=== PATIENT | male | born 1970 | race Caucasian/White ===

== ENCOUNTER → 2018-04-26 | Outpatient (CLI) | payer OTHER ==
[~2018-04-26] VITALS: Ht 182.9 cm; Wt 95.3 kg
[~2018-04-26] MED LIST: DURAGESIC1 EAC4 TOP; DURAGESIC1 EAC5 TRANSDERM; NEURONTIN600 MG PO; OXCARBAZEPINE150 MG PO; ROXICODONE15 M1 PO; ROXICODONE15 MG PO; ZANAFLEX2 MG PO
--- NOTE | ~2018-04-26 | HPC ---
[facility] [address] [place] [address] PAIN MANAGEMENT CONSULTATION Name: FELA VICTOR Room #: REG [facility]#: [id number] Admission: 04/26/18 Attend Phys: Andres Christina MD Discharge: Date of : 66 Report #: [id number] THIS REPORT FOR: //name// CC: Tena RAE [facility] physician/PCP Andres Christina CHIEF COMPLAINT: Chronic low back pain with radiation to the feet and ankles. 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 HISTORY OF PRESENT ILLNESS: This is the first visit at [facility] for the patient who is here today to renew medication. He is under terms of written opioid agreement that was established by my partner, Dr. Danis Victor. I will continue to provide him medication. He obtains benefit from the fentanyl patch changed every 48 hours. In addition, he has been using oxycodone 15 mg up to 3 times a day for breakthrough pain. His overall usage varies between 0 on a good day and 3 at the maximum on a bad day. He takes his breakthrough pain medication as he should, using it only when necessary with a baseline fentanyl is no longer providing relief. He has suffered greatly from his injury. He used to be very active and is still making efforts to continue to engage in joyful and day-to-day activities. This is harder in the winter and cold weather seems to exacerbate his pain and is in some situational depression. PHYSICAL EXAMINATION: GENERAL: Today He is well groomed, pleasant, soft spoken, appears mildly depressed. VITAL SIGNS: His blood pressure is 109/73, heart rate 85, respirations 14, BMI is 28.5. EXTREMITIES: Spastic gait is noted particularly on the left with some weakness. He has ataxia and spasticity in the left lower extremity. Deep tendon reflexes are diminished throughout the lower extremities. No localized numbness. IMPRESSION: 1. 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 2. Arachnoiditis. 3. Management of high risk medications under terms of an opioid agreement. RECOMMENDATIONS: We will continue to provide his medication for him. Alternate measures for treatment would include an intrathecal pump, which he is not interested in, as well as the possibility of a spinal cord stimulator. For now, we will continue medication management. He is instructed to carefully safeguard his medication. Because of his chronic use of opioid therapy and his relatively young age, I [facility] [address] [place] [address] PAIN MANAGEMENT CONSULTATION Name: FELA VICTOR Room #: REG [facility] Jer[facility]#: [id number] Admission: 04/26/18 Attend Phys: Andres Christina MD Discharge: Date of : 66 Report #: [id number] have asked for him to obtain a testosterone level. He may benefit from testosterone supplementation. We discussed all the risks of the opioid medications. Certainly effects on the testosterone can play a big role in fatigue, energy, sexual drive, and function. Questions were asked and answered. I have encouraged him to follow up with his primary care physician once a year. Given his significant traumatic injury, he needs an annual workup and blood work. By: [id number] Andres Christina MD /nt
[2018-04-26 12:56] VITALS: BP 109/73
--- NOTE | 2018-04-26 13:19 | NUR ---
Pain Clinic Assessment: 1. History of Osteoarthritis: Not Applicable History of Rheumatoid Arthritis: Not Applicable 2. Height: 6 ft. 0 in. 182.9 cm. Weight: 210.0 lb. oz. 95.256 kg. Patient's BMI: 28.5 3. Vital Signs: BP: 109/73 Pulse: 85 Resp: 14 Temp: 02 Sat: 98 ECG Mon: 4. Pain Intensity: 6 5. Fall Risk: Dizziness: N Needs help standing or walking: Y Fallen in the last 3 months: N Fall risk comments: 6. Patient on Blood Thinner: None 7. History of Hypertension: N 8. Opioid Therapy greater than 6 weeks: Y Opiate Contract Signed: 9. Risk Assessment Tool Provided: o-low 10. Functional Assessment Tool: 11. Recreational Drug Use: Never Drug Type: Tobacco Use: Never Smoker Tobacco Type: Amount or Packs/day: How Many Years: Alcohol Use: No Frequency: Quant:
== END ==
LOC: PAIN 07:15
DX: G95.89 Other specified diseases of spinal cord (principal); G03.9 Meningitis, unspecified; Z79.891 Long term (current) use of opiate analgesic

== ENCOUNTER → 2018-07-30 | Outpatient (CLI) | payer OTHER ==
[~2018-07-30] VITALS: Ht 182.9 cm; Wt 98.4 kg
[~2018-07-30] MED LIST changes: +DURAGESIC1 EACH TOP
[2018-07-30 09:52] VITALS: BP 129/79
--- NOTE | 2018-07-30 10:06 | NUR ---
Pain Clinic Assessment: 1. History of Osteoarthritis: Not Applicable History of Rheumatoid Arthritis: Not Applicable 2. Height: 6 ft. 0 in. 182.9 cm. Weight: 217.0 lb. oz. 98.431 kg. Patient's BMI: 29.4 3. Vital Signs: BP: 129/79 Pulse: 80 Resp: 16 Temp: 02 Sat: 97 ECG Mon: 4. Pain Intensity: 3 5. Fall Risk: Dizziness: N Needs help standing or walking: Y Fallen in the last 3 months: Y Fall risk comments: 6. Patient on Blood Thinner: None 7. History of Hypertension: N 8. Opioid Therapy greater than 6 weeks: Y Opiate Contract Signed: 9. Risk Assessment Tool Provided: o-low 10. Functional Assessment Tool: 11. Recreational Drug Use: Never Drug Type: Tobacco Use: Never Smoker Tobacco Type: Amount or Packs/day: How Many Years: Alcohol Use: No Frequency: Quant:
--- NOTE | 2018-07-31 08:39 | HPC ---
[facility] [address] [place] [address] PAIN MANAGEMENT CONSULTATION Name: FELA VICTOR [id number] Admission: 07/30/18 ������������������ Attend Phys: Fang Mcfadden Discharge: ������������������ Date of : 66 Report #: [id number] THIS REPORT FOR: //name// CC: Fang Mcfadden [facility] physician/PCP DATE OF SERVICE: 07/30/2018 CHIEF COMPLAINT: Chronic low back pain with radiation to the feet and ankles, history of arachnoiditis. HISTORY OF PRESENT ILLNESS: This is a very pleasant 47-year-old gentleman who returns to the pain clinic today for a refill of his medication. He is fairly new to the [facility], has been followed at [facility] for quite some time by Dr. Danis Victor and then most recently Dr. Andres Christina. He tells me that his pain score today is a 3/10. He has been doing quite well. He recently returned from a golf trip with his son in [place]. He was able to play a couple of rounds of golf. He has been trying to be more active. He stretches every morning and does yoga. He will take a tizanidine when he is doing his exercises and occasionally will need to repeat that for cramps in his legs. He tells me that his pain medicine has been very helpful in providing him means to be more active. He said occasionally, he tries to go longer on his patches in his 48 hours and feels like he is able to do that in managing his pain quite well. He tells me that occasionally, he does have some constipation not necessarily from his opioids, but from his previous colon surgeries, but he manages that with medication and diet. He tells me his pain is mostly in his low back and buttocks and his legs and feet, burning, constant, shooting, stabbing pain, but activity, heat and medications are helpful. He would like a refill of his medications today. ALLERGIES: BEE STINGS AND PENICILLIN. CURRENT LIST OF MEDICATIONS: Oxycodone 15 mg tablets every 8 hours as needed, fentanyl 50 mcg patch every 48 hours, tizanidine 2 mg tablets p.r.n., oxcarbazepine 150 mg 3 times a day and gabapentin 600 mg 3 times a day. PQRS: 1. She does not take any medicines for osteoarthritis or rheumatoid arthritis. 2. Height is 6 feet, weight is 217. BMI is 29. 3. Vital signs: Blood pressure 129/79, pulse is 80, respirations 16, oxygen sat is 97%. 4. Pain score is 3/10. 5. The patient denies dizziness. Does not need help walking or standing. Has fallen in the last 3 months. 6. The patient is not on any blood thinners or any medicines for hypertension. 7. Opioid therapy is greater than 6 weeks. [place] [address] PAIN MANAGEMENT CONSULTATION Name: FELA VICTOR Room #: REG [facility]#: [id number] Admission: 07/30/18 ������������������ Attend Phys: Fang Mcfadden Discharge: ������������������ Date of : 66 Report #: [id number] on the chart. 8. Risk assessment tool is low. Functional assessment is . 9. Recreational drug use, he denies. He is not a smoker and does not drink alcohol. We did check the prescription monitoring system and the patient is filling appropriately from Dr. Andres Christina. He tells me he does safeguard his medications. PHYSICAL EXAMINATION: GENERAL: This is a well-nourished, hydrated 47-year-old gentleman who appears his stated age. He is very tanned and in a good mood today. HEENT: Normocephalic, atraumatic. Extraocular eye muscles are intact. Mucous membranes are moist. EXTREMITIES: Mild spastic gait is noted, weakness, particularly in his left leg. He has ataxia and spasticity in his left lower extremity. His deep tendon reflexes are diminished in his lower extremities. IMPRESSION: 1. Persistent myelopathic and radiculopathy with spasticity and antalgic gait. 2. Arachnoiditis. 3. Management of high risk medications under terms of written opioid agreement. We reviewed the fact that opiate medications are being used to provide analgesia adequate to support activities of daily living, not attempting to achieve a specific pain score on the 0-10 Visual Analog Scale. The current opiate medications are providing sufficient analgesia to allow the patient to participate in activities of daily living. The patient is not exhibiting any aberrant behavior suggestive of drug diversion. The patient is not having any adverse reactions to medications. The patient is not suffering from daytime somnolence or mental acuity changes. The patient is managing opiate-induced constipation with appropriate fkze-lis-dftyaeu agents and dietary considerations. The patient was counseled on concern for caution with operating a motor vehicle while using opiate medications. A physical exam was performed and the patient's functional status was evaluated. All patients with back pain were advised against the bed rest greater than 4 days and were advised to return to normal activities. Pain score assessment was noted and the treatment plan was reviewed with the patient. All current medications, both prescribed and OTC were reviewed and reconciled on the electronic medical record. Tobacco screening was accomplished and smoking cessation was advised when indicated. BMI was noted and diet/exercise modification was recommended for all patients following outside normal parameters. I reviewed with the patient today their responsibilities to safeguard [facility] [address] [place] [address] PAIN MANAGEMENT CONSULTATION Name: FELA VICTOR Room #: REG [facility].#: [id number] Admission: 07/30/18 ������������������ Attend Phys: Fang Mcfadden Discharge: ������������������ Date of : 66 Report #: [id number] prescription medications, reviewed their responsibility to utilize medications only as prescribed by the physician. They are to seek and receive pain medications only from 1 physician group ( [facility]). They are to use 1 pharmacy and keep the clinic informed if they change pharmacies. Their responsibilities include making followup visits in a timely fashion and to avoid abrupt discontinuation of medication usage. Their responsibilities further include bringing their medications (bottles from the pharmacy with residual pills) to the visit for possible confirmation of pill counts and the patient understands it is their responsibility to submit to random drug screens to ensure both that the medications prescribed are present, and that no other controlled substances are present. All prescriptions provided today were generated electronically. PLAN: 1. We discussed treatment options with the patient today. The patient tells me that he has been on this current dose of medications since 2016, which he was on a significantly higher amount of medicine at that time. He had weaned down and has been doing quite well. He tells me that he does realize he is on a very high dose of medications, but it does allow him to function. Dr. Christina was present for part of the discussion today when we discussed his current morphine milligram equivalents of 153 per day well above the CDC guidelines. We think that we will try to decrease his medications to a lower dose. The patient is agreeable with trying this. We explained to him that the CDC guidelines are 90 morphine milligram equivalents or below. He may never get to that point, but we will try to taper him slowly to see if we get good benefits in reducing his pain, but also reducing his pain medicine without any side effects or withdrawal symptoms. The patient is agreeable to trying this. We will give him prescriptions for Duragesic 25 mcg patch and Duragesic 12 mcg patch to take every 48 hours as well as his OxyIR 15 mg to take as needed, #45 for the month, this will decrease his morphine milligram equivalents to 120 per day. 2. I explained the guidelines to the patient of our clinic how people will be seen on a monthly basis if they are above the 90 milligram equivalents per the CDC guidelines. He is fine with that. He will make an appointment for 1 month. We will see how he is doing and continue his current tapered dose for several months before we would try to possibly decrease his OxyIR dose to a lesser strength. The patient verbalizes understanding. Appointment made. 3. The patient is seen with Dr. Andres Christina today who collaborated care as well. ��������������������������������������������� <ELECTRONICALLY SIGNED> ���������������������������������������� By: Fang Mcfadden ��������������������������������������������� 07/31/18 0839 [id number] [id number] Fang Mcfadden /nt
== END ==
LOC: PAIN 07:02
DX: G89.29 Other chronic pain (principal); M54.16 Radiculopathy, lumbar region; G03.9 Meningitis, unspecified; Z88.0 Allergy status to penicillin; Z91.030 Bee allergy status; Z79.891 Long term (current) use of opiate analgesic

== ENCOUNTER → 2018-08-27 | Outpatient (CLI) | payer OTHER ==
[~2018-08-27] VITALS: Ht 185.4 cm; Wt 97.7 kg
[~2018-08-27] MED LIST changes: +TRILEPTAL150 MG PO
[2018-08-27 10:20] VITALS: BP 120/79
--- NOTE | 2018-08-27 10:38 | NUR ---
Pain Clinic Assessment: 1. History of Osteoarthritis: Not Applicable History of Rheumatoid Arthritis: Not Applicable 2. Height: 6 ft. 1 in. 185.4 cm. Weight: 215.4 lb. oz. 97.705 kg. Patient's BMI: 28.4 3. Vital Signs: BP: 120/79 Pulse: 65 Resp: 16 Temp: 02 Sat: 98 ECG Mon: 4. Pain Intensity: 5 5. Fall Risk: Dizziness: N Needs help standing or walking: N Fallen in the last 3 months: N Fall risk comments: 6. Patient on Blood Thinner: None 7. History of Hypertension: N 8. Opioid Therapy greater than 6 weeks: Y Opiate Contract Signed: 04/26/18 9. Risk Assessment Tool Provided: sheldon 10. Functional Assessment Tool: 11. Recreational Drug Use: Never Drug Type: Tobacco Use: Never Smoker Tobacco Type: Amount or Packs/day: How Many Years: Alcohol Use: No Frequency: Quant:
--- NOTE | 2018-08-28 09:06 | HPC ---
[facility] [address] [place] [address] PAIN MANAGEMENT CONSULTATION Name: FELA VICTOR Room #: REG [facility]#: [id number] Admission: 08/27/18 ������������������ Attend Phys: Fang Mcfadden Discharge: ������������������ Date of : 66 Report #: [id number] THIS REPORT FOR: //name// CC: Fang Mcfadden [facility] physician/PCP DATE OF SERVICE: 08/27/2018 CHIEF COMPLAINT: Chronic low back pain with radiation to his feet and ankles with a history of arachnoiditis. HISTORY OF PRESENT ILLNESS: This is a very pleasant 47-year-old gentleman who returns to the pain clinic today for refill of his medications. He tells me today that his pain score is 5/10, mostly complains of lower back pain and feet pain. He has a constant, burning, shooting, cramping pain, worse with activity. He does use heat and distraction to help relieve some of his pain. The patient tells us that he feels like he is doing okay since we decreased his medications last time, but he is afraid that he will experience more withdrawal or increased pain. He has tapered his medications in the past and he had lots of anxiety related to that though this past month, he tells me that he has been dealing with his pain using distraction techniques and has not had some of the issues that he had had in the past. He tells me that he feels like he does have some increased energy since decreasing his medications. The patient would like a refill of his medications today. He does also tell me that he has decreased his oxcarbazepine from 150 three times a day to 2 times a day and has not noticed any significant changes in decrease in that medicine as well. ALLERGIES: PENICILLIN and BEE STINGS. CURRENT MEDICATION LIST: Fentanyl 37 mcg every 48 hours, oxycodone 15 mg tablets 1-2 times a day, tizanidine 2 mg at bedtime, oxcarbazepine 150 mg b.i.d. and gabapentin 600 t.i.d. PQRS: 1. He does not take medicines for osteoarthritis or rheumatoid arthritis. 2. Height is 6 feet 1 inch, weight is 215 and BMI is 28. 3. VITAL SIGNS: Blood pressure 120/79, pulse is 65, respirations 16 and oxygen sat is 98. 4. Pain score is 5/10. 5. The patient denies dizziness. Does not need help walking or standing, has not fallen in the last 3 months. 6. The patient is not on any blood thinners or antihypertension medicines. 7. Opiate therapy is greater than 6 weeks; therefore, an opiate signed contract is on the chart. His risk assessment tool is low and functional assessment is . [address] [address] PAIN MANAGEMENT CONSULTATION Name: VALENTEFELA Cody Room #: REG [facility]#: [id number] Admission: 08/27/18 ������������������ Attend Phys: Fang Mcfadden Discharge: ������������������ Date of : 66 Report #: [id number] 8. Recreational drug use, he denies. He is not a smoker and does not drink alcohol. We did check the prescription monitoring system. The patient is due for his medications today. We will check a drug screen on him on the next appointment. He is a transfer from [facility] and so I am unsure when his last drug screen was performed. PHYSICAL EXAMINATION: GENERAL: This is a well-nourished, well-hydrated 47-year-old gentleman who appears his stated age, placing his current pain score today of 5/10. He is alert and tearful at times throughout our appointment today. HEENT: Normocephalic and atraumatic. Extraocular eye muscles are intact. Mucous membranes are moist. EXTREMITIES: Mild spastic gait is noted, weakness, particularly of his left leg. He has some ataxia and spasticity in his left lower extremity. His deep tendon reflexes are diminished in his lower extremities. His upper extremity strength judged to be 5/5 in all major muscle groups. IMPRESSION: 1. 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 2. Arachnoiditis. 3. Management of high risk medications under terms of written opioid agreement. We reviewed the fact that opiate medications are being used to provide analgesia adequate to support activities of daily living, not attempting to achieve a specific pain score on the 0-10 Visual Analog Scale. The current opiate medications are providing sufficient analgesia to allow the patient to participate in activities of daily living. The patient is not exhibiting any aberrant behavior suggestive of drug diversion. The patient is not having any adverse reactions to medications. The patient is not suffering from daytime somnolence or mental acuity changes. The patient is managing opiate-induced constipation with appropriate xavq-wbk-gkauiad agents and dietary considerations. The patient was counseled on concern for caution with operating a motor vehicle while using opiate medications. A physical exam was performed and the patient's functional status was evaluated. All patients with back pain were advised against the bed rest greater than 4 days and were advised to return to normal activities. Pain score assessment was noted and the treatment plan was reviewed with the patient. All current medications, both prescribed and OTC were reviewed and reconciled on the electronic medical record. Tobacco screening was accomplished and smoking cessation was advised when indicated. BMI was noted and diet/exercise modification was recommended for all patients following outside normal parameters. [address] [address] PAIN MANAGEMENT CONSULTATION Name: FELA VICTOR Room #: REG [facility]#: [id number] Admission: 08/27/18 ������������������ Attend Phys: Fang Mcfadden Discharge: ������������������ Date of : 66 Report #: [id number] I reviewed with the patient today their responsibilities to safeguard prescription medications, reviewed their responsibility to utilize medications only as prescribed by the physician. They are to seek and receive pain medications only from 1 physician group ( [facility]). They are to use 1 pharmacy and keep the clinic informed if they change pharmacies. Their responsibilities include making followup visits in a timely fashion and to avoid abrupt discontinuation of medication usage. Their responsibilities further include bringing their medications (bottles from the pharmacy with residual pills) to the visit for possible confirmation of pill counts and the patient understands it is their responsibility to submit to random drug screens to ensure both that the medications prescribed are present, and that no other controlled substances are present. All prescriptions provided today were generated electronically. PLAN: 1. We discussed treatment options with the patient today. Dr. Christina was present for part of this discussion. We decreased his narcotic use slightly at his last visit. He tells me that he is having some increased pain and has been worried and afraid that he will go through significant withdrawal and lack of energy and sitting at home like he had when he had decreased his meds in the past. He is slightly tearful about what this might happen over the next few months that he tells me he has been adjusting and using behavior modification and distraction techniques and feels like he is able to continue at this current dose for several months and see how he does. He is not willing to try to go up. He wants to stay where he is and see if his body will adjust. We agree with this plan that we want to see if he will continue to reset his receptors in his body and become opioid tolerant to his medications. Our plan is not to decrease him again for several more months. According to the CDC guidelines, he is currently at 120 morphine milliequivalents a day and we will keep him at this current dose for about 3 more months. He is agreeable with staying where he is and seeing how he continues to do. 2. Scripts given today for his fentanyl 25 mcg every 48 hours, #15 and fentanyl 12 mcg every 48 hours, #15 and OxyIR 15 mg 1-2 tablets a day, quantity 45. 3. Scripts given for gabapentin 600 mg t.i.d., #90 with one additional refill; tizanidine 2 mg q. 8 hours, #90 with one additional refill and Trileptal 150 b.i.d., #60 with one additional refill. The patient did question the Trileptal and trying to decrease that medication. He has decreased it from 3 times a day to twice a day, has not noticed any difference in his neuropathic pain. I explained to him that if he wants to try and decrease another tablet, he can, but we do not want to make too many changes while we are decreasing his narcotics. He verbalizes understanding. 4. We encouraged him to be as active as these possible and we will see him in 1 month time period to see how his medication regimen is going with a decrease. [address] [address] PAIN MANAGEMENT CONSULTATION Name: FELA VICTOR Room #: REG [facility]#: [id number] Admission: 08/27/18 ������������������ Attend Phys: Fang Mcfadden Discharge: ������������������ Date of : 66 Report #: [id number] 5. The patient seen in collaboration with Dr. Andres Christina who saw the patient as well today. ��������������������������������������������� <ELECTRONICALLY SIGNED> ���������������������������������������� By: Fang Mcfadden ��������������������������������������������� 08/28/18 0906 [id number] [id number] Fang Mcfadden /nt
== END ==
LOC: PAIN 06:44
DX: G89.29 Other chronic pain (principal); M54.16 Radiculopathy, lumbar region; G03.1 Chronic meningitis; Z88.0 Allergy status to penicillin; Z91.030 Bee allergy status; Z79.899 Other long term (current) drug therapy; Z79.891 Long term (current) use of opiate analgesic

== ENCOUNTER → 2018-09-24 | Outpatient (CLI) | payer OTHER ==
[~2018-09-24] VITALS: Ht 185.4 cm; Wt 96.3 kg
[2018-09-24 10:07] VITALS: BP 117/82
--- NOTE | 2018-09-24 10:21 | NUR ---
Pain Clinic Assessment: 1. History of Osteoarthritis: Not Applicable History of Rheumatoid Arthritis: Not Applicable 2. Height: 6 ft. 1 in. 185.4 cm. Weight: 212.2 lb. oz. 96.253 kg. Patient's BMI: 28.0 3. Vital Signs: BP: 117/82 Pulse: 66 Resp: 14 Temp: 02 Sat: 97 ECG Mon: 4. Pain Intensity: 3 5. Fall Risk: Dizziness: N Needs help standing or walking: N Fallen in the last 3 months: Y Fall risk comments: 6. Patient on Blood Thinner: None 7. History of Hypertension: N 8. Opioid Therapy greater than 6 weeks: Y Opiate Contract Signed: 04/26/18 9. Risk Assessment Tool Provided: sheldon 10. Functional Assessment Tool: 11. Recreational Drug Use: Never Drug Type: Tobacco Use: Never Smoker Tobacco Type: Amount or Packs/day: How Many Years: Alcohol Use: No Frequency: Quant:
--- NOTE | 2018-09-25 13:48 | HPC ---
[facility] [address] [place] [address] PAIN MANAGEMENT CONSULTATION Name: FELA VICTOR Room #: REG [facility]#: [id number] Admission: 09/24/18 ������������������ Attend Phys: Fang Mcfadden Discharge: ������������������ Date of : 66 Report #: [id number] THIS REPORT FOR: //name// CC: Fang Mcfadden [facility] physician/PCP DATE OF SERVICE: 09/24/2018 CHIEF COMPLAINT: Chronic low back pain with radiation to his feet and ankles with a history of arachnoiditis. HISTORY OF PRESENT ILLNESS: This is a very pleasant 47-year-old gentleman who returns to the pain clinic today for refill of his medications. He tells me that his pain score is 3/10 today. He said his body is still trying to adjust to decrease in his medication. He did have to take more of his oxycodone than he normally takes and he has been out of that for several days. He tells me that he knows that he has had some good days since he had decreased, but overall has been a hard adjustment. He tells me that most of his pain is in his low back and legs and feet, constant, burning, shooting, cramping pain, worse with activity and heat, better with activity and distraction. He does tell me he has been playing golf shooting a bucket of balls every day at the golf course and the playing at least 1 day a week. His goal is to be able to walk an 18-hole golf course. He tells me he is not having any problems with constipation or daytime sleepiness. ALLERGIES: BEE STING AND PENICILLIN. HOME MEDICATIONS: Oxycodone 15 mg p.r.n., fentanyl patch 25 mcg and 12 mcg every 48 hours, Trileptal 150 mg b.i.d., gabapentin 600 mg t.i.d., tizanidine 2 mg every 8 hours. PQRS: 1. He does not take medications for osteoarthritis or rheumatoid arthritis. 2. Height is 6 feet 1 inch, weight is 212, BMI is 28. 3. Vital signs: Blood pressure 117/82, pulse is 66, respirations 14, oxygen sat is 97%. Pain score is 3/10. 4. Fall risk. Denies dizziness. Does not need help with walking or standing. Has fallen in the last 3 months. The patient is not on any blood thinners or hypertension medications. 5. His opioid therapy is greater than 6 weeks; therefore, an opioid signed contract is on the chart. His risk assessment tool is low. His functional assessment is 31/70. 6. Recreational drug use, he denies. He is not a smoker and does not drink alcohol. We did check the prescription monitoring system[place] [address] PAIN MANAGEMENT CONSULTATION Name: FELA VICTOR Room #: REG [facility]#: [id number] Admission: 09/24/18 ������������������ Attend Phys: Fang Mcfadden Discharge: ������������������ Date of : 66 Report #: [id number] appropriately for his medications. He does keep them safeguarded at all times. PHYSICAL EXAMINATION: VITAL SIGNS: This is a well-nourished, well-hydrated 47-year-old gentleman who appears his stated age, placing his current pain score today at 3/10. GENERAL: He is alert and orientated today. His affect is appropriate. HEENT: Normocephalic, atraumatic. Extraocular eye muscles are intact. Mucous membranes are moist. EXTREMITIES: He has a spastic gait. Weakness in his left leg. He has some ataxia and spasticity in his left lower extremity. His deep tendon reflexes are diminished in his lower extremities. ASSESSMENT: 1. 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 2. Arachnoiditis. 3. Management of high risk medications under terms of written opioid agreement. We reviewed the fact that opiate medications are being used to provide analgesia adequate to support activities of daily living, not attempting to achieve a specific pain score on the 0-10 Visual Analog Scale. The current opiate medications are providing sufficient analgesia to allow the patient to participate in activities of daily living. The patient is not exhibiting any aberrant behavior suggestive of drug diversion. The patient is not having any adverse reactions to medications. The patient is not suffering from daytime somnolence or mental acuity changes. The patient is managing opiate-induced constipation with appropriate pzpk-frb-doecxdl agents and dietary considerations. The patient was counseled on concern for caution with operating a motor vehicle while using opiate medications. A physical exam was performed and the patient's functional status was evaluated. All patients with back pain were advised against the bed rest greater than 4 days and were advised to return to normal activities. Pain score assessment was noted and the treatment plan was reviewed with the patient. All current medications, both prescribed and OTC were reviewed and reconciled on the electronic medical record. Tobacco screening was accomplished and smoking cessation was advised when indicated. BMI was noted and diet/exercise modification was recommended for all patients following outside normal parameters. I reviewed with the patient today their responsibilities to safeguard prescription medications, reviewed their responsibility to utilize medications only as prescribed by the physician. They are to seek and receive pain medications only from 1 physician group ([facility]). They are to use 1 pharmacy and keep the clinic informed if they change pharmacies. Their responsibilities include making followup visits in a timely fashion and to avoid abrupt discontinuation of medication usage. Their responsibilities further [facility] [address] [place] [address] PAIN MANAGEMENT CONSULTATION Name: FELA VICTOR Room #: REG [facility].#: [id number] Admission: 09/24/18 ������������������ Attend Phys: Fang SOFI Mcfadden Discharge: ������������������ Date of : 66 Report #: [id number] include bringing their medications (bottles from the pharmacy with residual pills) to the visit for possible confirmation of pill counts and the patient understands it is their responsibility to submit to random drug screens to ensure both that the medications prescribed are present, and that no other controlled substances are present. All prescriptions provided today were generated electronically. PLAN: 1. We discussed treatment options with the patient today. The patient verbalized he understands and we have to decrease his medications again. I explained to him that it is not our plan to decrease him for several months, to keep him at his current level of his oxycodone and fentanyl at 37 mcg per hour. Our plan is for his body to adjust to his current level of medications and see where he is at. The patient tells me he is thankful for that. He feels like he is able to decrease his medications further and would like to do that, but he would like to wait until he is not as active and do it more in the fall and winter months. Currently, this patient is at 120 morphine milligram equivalents per day. Prescription given today for fentanyl 12 mcg, #15 and fentanyl 25 mcg, #15 patches and oxycodone 15 mg, #45. 2. The patient did give us a urine specimen today for a random drug screen. 3. Dr. Christina did see the patient and collaborated care. The patient will return in 1-month time period for his appointment. ��������������������������������������������� <ELECTRONICALLY SIGNED> ���������������������������������������� By: Fang Mcfadden ��������������������������������������������� 09/25/18 1348 [id number] Fang Mcfadden /nt
== END ==
LOC: PAIN 06:48
DX: M54.16 Radiculopathy, lumbar region (principal); G03.8 Meningitis due to other specified causes; Z79.899 Other long term (current) drug therapy; M25.571 Pain in right ankle and joints of right foot; M25.572 Pain in left ankle and joints of left foot

== ENCOUNTER → 2018-10-25 | Outpatient (CLI) | payer OTHER ==
[~2018-10-25] VITALS: Ht 185.4 cm; Wt 97.3 kg
[~2018-10-25] MED LIST changes: +TIZANIDINE HCL 22 M1 PO
[2018-10-25 09:34] VITALS: BP 109/72
--- NOTE | 2018-10-25 09:58 | NUR ---
Pain Clinic Assessment: 1. History of Osteoarthritis: Not Applicable History of Rheumatoid Arthritis: Not Applicable 2. Height: 6 ft. 1 in. 185.4 cm. Weight: 214.4 lb. oz. 97.251 kg. Patient's BMI: 28.3 3. Vital Signs: BP: 109/72 Pulse: 61 Resp: 14 Temp: 02 Sat: 99 ECG Mon: 4. Pain Intensity: 3 5. Fall Risk: Dizziness: N Needs help standing or walking: N Fallen in the last 3 months: N Fall risk comments: 6. Patient on Blood Thinner: None 7. History of Hypertension: N 8. Opioid Therapy greater than 6 weeks: Y Opiate Contract Signed: 04/26/18 9. Risk Assessment Tool Provided: sheldon 10. Functional Assessment Tool: 11. Recreational Drug Use: Never Drug Type: Tobacco Use: Never Smoker Tobacco Type: Amount or Packs/day: How Many Years: Alcohol Use: No Frequency: Quant:
--- NOTE | 2018-10-26 07:49 | HPC ---
[facility] [address] [place] [address] PAIN MANAGEMENT CONSULTATION Name: FELA VICTOR Room #: REG [facility].#: [id number] Admission: 10/25/18 ������������������ Attend Phys: Fang Mcfadden Discharge: ������������������ Date of : 66 Report #: [id number] THIS REPORT FOR: //name// CC: Fang Mcfadden FAM unknown DATE OF SERVICE: 10/25/2018 CHIEF COMPLAINT: Chronic low back pain with radiation to his feet with history of arachnoiditis. HISTORY OF PRESENT ILLNESS: This is a pleasant 48-year-old gentleman who returns to the pain clinic today for a refill of his medications that he uses to help treat his ongoing back pain and leg pain from arachnoiditis. The patient tells me that he is having a great day today, the best day he has had in a long time. His pain score is a 3/10. He does have some burning, cramping, stabbing, sharp pain that he experiences more with increased activity, though he does continue to golf several times a week and be as active as possible. He tells me his medication as well as stretching helps relieve some of his discomfort. He has no problems with constipation that he is experiencing currently. He would like a refill of his fentanyl patches and his neuropathic pain medicines. ALLERGIES: BEE STINGS AND PENICILLIN. CURRENT LIST OF MEDICATIONS: Oxycodone 15 mg p.r.n., fentanyl patch 25 mcg, fentanyl patch 12 mcg, Trileptal 150 mg b.i.d., gabapentin 600 mg t.i.d., tizanidine 2 mg every 8 hours p.r.n. PQRS: 1. The patient did not take any medication or treated for osteoarthritis or rheumatoid arthritis. 2. Height is 6 feet 1 inch, weight is 214, BMI is 28. 3. Vital Signs: Blood pressure 109/72, pulse is 61, respirations 14, oxygen sat is 99%. 4. Pain score is 3/10. 5. Denies dizziness, does not need help walking or standing, has not fallen in the last 3 months. 6. The patient is not on any blood thinners. He does not take medicines for hypertension. 7. Opioid therapy is greater than 6 weeks; therefore, an opioid signed contract is on the chart. His risk assessment tool is low. Functional assessment is . 8. Recreational drug use, he denies. He is not a smoker and does not drink alcohol. I did check the prescription monitoring system. The patient is filling [address] [address] PAIN MANAGEMENT CONSULTATION Name: FELA VICTOR Room #: REG [facility]#: [id number] Admission: 10/25/18 ������������������ Attend Phys: Fang Mcfadden Discharge: ������������������ Date of : 66 Report #: [id number] appropriately for his medications and is due for those today. We did check a random drug screen in his last visit that is appropriate for medications. It was positive for nicotine. He tells me he does not smoke cigarettes, but he occasionally does chew tobacco. PHYSICAL EXAMINATION: GENERAL: This is a well-developed, well-nourished, well-hydrated 48-year-old gentleman who appears his stated age, placing his current pain score at 3/10. HEENT: Normocephalic, atraumatic. Extraocular eye muscles are intact. Mucous membranes are moist. EXTREMITIES: He has a spastic gait. He has weakness in his left leg and some ataxia and spasticity in his lower left extremity. The patient complains of some tenderness across his lumbar spine as well today. ASSESSMENT: 1. 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 2. Arachnoiditis. 3. Management of high-risk medications under terms a written opioid agreement. We reviewed the fact that opiate medications are being used to provide analgesia adequate to support activities of daily living, not attempting to achieve a specific pain score on the 0-10 Visual Analog Scale. The current opiate medications are providing sufficient analgesia to allow the patient to participate in activities of daily living. The patient is not exhibiting any aberrant behavior suggestive of drug diversion. The patient is not having any adverse reactions to medications. The patient is not suffering from daytime somnolence or mental acuity changes. The patient is managing opiate-induced constipation with appropriate yukr-mrm-lfqegfq agents and dietary considerations. The patient was counseled on concern for caution with operating a motor vehicle while using opiate medications. A physical exam was performed and the patient's functional status was evaluated. All patients with back pain were advised against the bed rest greater than 4 days and were advised to return to normal activities. Pain score assessment was noted and the treatment plan was reviewed with the patient. All current medications, both prescribed and OTC were reviewed and reconciled on the electronic medical record. Tobacco screening was accomplished and smoking cessation was advised when indicated. BMI was noted and diet/exercise modification was recommended for all patients following outside normal parameters. I reviewed with the patient today their responsibilities to safeguard prescription medications, reviewed their responsibility to utilize medications only as prescribed by the physician. They are to seek and receive pain medications only from 1 physician group ([facility]). They are to use 1 pharmacy and keep the clinic informed if they change pharmacies. Their [facility] [address] [place] [address] PAIN MANAGEMENT CONSULTATION Name: FELA VICTOR Room #: REG [facility]#: [id number] Admission: 10/25/18 ������������������ Attend Phys: Fang Mcfadden Discharge: ������������������ Date of : 66 Report #: [id number] responsibilities include making followup visits in a timely fashion and to avoid abrupt discontinuation of medication usage. Their responsibilities further include bringing their medications (bottles from the pharmacy with residual pills) to the visit for possible confirmation of pill counts and the patient understands it is their responsibility to submit to random drug screens to ensure both that the medications prescribed are present, and that no other controlled substances are present. All prescriptions provided today were generated electronically. PLAN: 1. We discussed treatment options with the patient today. The patient tells me he is doing quite well on his current pain regimen. He has not required breakthrough pain medicine for a couple of days, though some days he requires additional. I explained to him that is how breakthrough pain medicine is supposed to be taken some less on days that he is better and days that he has have increased pain, then he allows himself to take a few more pills. The patient is adjusting to the lower dose of fentanyl patches, which we had decreased in August. I explained to him that we will keep him on this current patch level for a couple of more months and then hopefully be able to decrease him to 25 mcg patches. He verbalizes understanding. 2. Scripts given today for fentanyl 12 mcg #15 every 48 hours, and fentanyl 25 mcg every 48 hours, #15 and oxycodone 15 mg, #45. Scripts also given for tizanidine 2 mg #90 with one additional refill; gabapentin 600 mg, #90 with 1 refill, and oxcarbazepine #60 with one additional refill. 3. The patient tells me he would like to try and decrease his oxcarbazepine. I encouraged him to do that by taking 1 less pill a day if he has not see increase in his neuropathic pain. He can continue that for at least a month before trying to decrease the final pill. I would not recommend him decreasing both neuropathic pain pill medicines. I think that he will need to be on 1 neuropathic pain medication indefinitely. He verbalizes understanding. 4. The patient is getting ready to go on vacation. We encouraged him to safeguard his meds at all times. He will do that and make an appointment after he comes back from vacation. The patient is seen with Dr. Andres Christina who collaborated care today and saw the patient as well. ��������������������������������������������� <ELECTRONICALLY SIGNED> ���������������������������������������� By: Fang Mcfadden ��������������������������������������������� 10/26/18 0749 [id number] Fang Mcafdden /prasanth
== END ==
LOC: PAIN 09:14
DX: M54.16 Radiculopathy, lumbar region (principal); G95.89 Other specified diseases of spinal cord; Z79.891 Long term (current) use of opiate analgesic

== ENCOUNTER → 2018-11-26 | Outpatient (CLI) | payer OTHER ==
[~2018-11-26] VITALS: Ht 185.4 cm; Wt 95.4 kg
[2018-11-26 08:45] VITALS: BP 125/83
--- NOTE | 2018-11-26 08:53 | NUR ---
Pain Clinic Assessment: 1. History of Osteoarthritis: Not Applicable History of Rheumatoid Arthritis: Not Applicable 2. Height: 6 ft. 1 in. 185.4 cm. Weight: 210.4 lb. oz. 95.437 kg. Patient's BMI: 27.8 3. Vital Signs: BP: 125/83 Pulse: 63 Resp: 16 Temp: 02 Sat: 97 ECG Mon: 4. Pain Intensity: 5 5. Fall Risk: Dizziness: N Needs help standing or walking: N Fallen in the last 3 months: N Fall risk comments: 6. Patient on Blood Thinner: None 7. History of Hypertension: N 8. Opioid Therapy greater than 6 weeks: Y Opiate Contract Signed: 04/26/18 9. Risk Assessment Tool Provided: sheldon 10. Functional Assessment Tool: 11. Recreational Drug Use: Never Drug Type: Tobacco Use: Never Smoker Tobacco Type: Amount or Packs/day: How Many Years: Alcohol Use: No Frequency: Quant:
--- NOTE | 2018-11-27 08:13 | HPC ---
[facility] [address] [place] [address] PAIN MANAGEMENT CONSULTATION Name: FELA VICTOR Room #: REG [facility].#: [id number] Admission: 11/26/18 Attend Phys: Fang Mcfadden Discharge: Date of : 66 Report #: [id number] THIS REPORT FOR: //name// CC: Fang Mcfadden FAM unknown DATE OF SERVICE: 11/26/2018 CHIEF COMPLAINT: Chronic low back pain with radiation to his bilateral feet. History of arachnoiditis. HISTORY OF PRESENT ILLNESS: This is a very pleasant 48-year-old gentleman who returns to the pain clinic today for refill of his medications. He recently returned from vacation in [place] with his family where he was quite active and that did increase his pain. Today, he reports a pain score of 5/10 in his lower back, bilateral legs and feet. It is a constant, burning, shooting, sharp pain of a 5/10. The medications are helpful as well as stretching and using hot water. He tells me that the tizanidine is very beneficial when he has increased activity such as when he is playing golf, some days he only requires 1 pill, but sometimes he requires 3 tizanidine a day. He has been able to decrease his oxcarbazepine to one tablet a day slowly weaning off of this medication. He is here for refills today. CURRENT ALLERGIES: BEE STINGS AND PENICILLIN. CURRENT LIST OF MEDICATIONS: Oxycodone 15 mg p.r.n., fentanyl patch 25+ a 12 equals 37 every 48 hours, gabapentin 600 mg 3 times a day, tizanidine 2 mg p.r.n., Trileptal 150 mg daily. PQRS: 1. He does not take any medicines or be treated for osteoarthritis or rheumatoid arthritis. 2. Height is 6 feet 1 inch, weight is 210 and BMI is 27. 3. Vital signs 125/83, pulse is 63, respirations 16, oxygen sat is 97. 4. Pain score is 5/10. 5. Fall risk. Denies dizziness, does not need help walking or standing, has not fallen in the last 3 months. 6. The patient is not on any blood thinners or medicine for hypertension. 7. Opioid therapy is greater than 6 weeks; therefore, an opioid signed contract is on the chart. 8. Risk assessment tool is low. Functional assessment is . 9. Recreational drug use, he denies. He is not a smoker and does not drink alcohol. We did check the prescription monitoring system. The patient is due to fill his prescriptions. There is a recent drug screen on the chart that is appropriate [address] [address] PAIN MANAGEMENT CONSULTATION Name: FELA VICTOR [id number] Admission: 11/26/18 Attend Phys: Fang Mcfadden Discharge: Date of : 66 Report #: [id number] as well. PHYSICAL EXAMINATION: GENERAL: This is a well-developed, well-nourished, well-hydrated 48-year-old gentleman who appears his stated age, placing his current pain score at 5/10. HEENT: Normocephalic, atraumatic. Extraocular eye muscles are intact. Mucous membranes are moist. MUSCULOSKELETAL: He has a spastic gait. He has left foot drop, on the left, has AFO at home, not wearing currently today. His pain follows his L5 dermatomal distribution. He has weakness in his left leg and some spasticity in his left lower extremity, strength is 4/5 in all major muscle groups. He also has some tenderness across his lumbar spine. ASSESSMENT: 1. 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 2. Arachnoiditis. 3. Management of high risk medications under terms of written opioid agreement. We reviewed the fact that opiate medications are being used to provide analgesia adequate to support activities of daily living, not attempting to achieve a specific pain score on the 0-10 Visual Analog Scale. The current opiate medications are providing sufficient analgesia to allow the patient to participate in activities of daily living. The patient is not exhibiting any aberrant behavior suggestive of drug diversion. The patient is not having any adverse reactions to medications. The patient is not suffering from daytime somnolence or mental acuity changes. The patient is managing opiate-induced constipation with appropriate kvuv-zfc-piggmhv agents and dietary considerations. The patient was counseled on concern for caution with operating a motor vehicle while using opiate medications. A physical exam was performed and the patient's functional status was evaluated. All patients with back pain were advised against the bed rest greater than 4 days and were advised to return to normal activities. Pain score assessment was noted and the treatment plan was reviewed with the patient. All current medications, both prescribed and OTC were reviewed and reconciled on the electronic medical record. Tobacco screening was accomplished and smoking cessation was advised when indicated. BMI was noted and diet/exercise modification was recommended for all patients following outside normal parameters. I reviewed with the patient today their responsibilities to safeguard prescription medications, reviewed their responsibility to utilize medications only as prescribed by the physician. They are to seek and receive pain medications only from 1 physician group ([facility]). They are to use 1 pharmacy and keep the clinic informed if they change pharmacies. Their responsibilities include making followup visits in a timely fashion and to avoid abrupt discontinuation of medication usage. Their responsibilities further [address] [place] [address] PAIN MANAGEMENT CONSULTATION Name: FELA VICTOR Room #: REG [facility]#: [id number] Admission: 11/26/18 Attend Phys: Fang Mcfadden Discharge: Date of : 66 Report #: [id number] include bringing their medications (bottles from the pharmacy with residual pills) to the visit for possible confirmation of pill counts and the patient understands it is their responsibility to submit to random drug screens to ensure both that the medications prescribed are present, and that no other controlled substances are present. All prescriptions provided today were generated electronically. PLAN: 1. We discussed treatment options with the patient today. The patient continues to taper his Trileptal and is down to one tablet a day. Has not noticed any significant difference in this. 2. Scripts given for tizanidine 2 mg every 8 hours, #90 with two additional refill; gabapentin 600 mg t.i.d., #90 with 2 additional refills, fentanyl patch 12 mcg, fentanyl patch 25 mcg every 48 hours, #15 given for 1-month supply and oxycodone 15 mg, #45. 3. Dr. Andres Christina did see the patient as well today. We did talk about an AFO. The patient has numerous at home available to him. He feels they are uncomfortable. Dr. Christina reiterated it does help with his left foot drop, even a small Velcro brace may be beneficial to prevent tripping and falling. The patient has not though fallen in the last 3 months. 4. The patient will return in 1 month time. Again, the patient was seen with Dr. Andres Christina and collaborated care today. <ELECTRONICALLY SIGNED> By: Fang Mcfadden 11/27/18 0813 [id number] Fang Mcfadden /nt
== END ==
LOC: PAIN 11-21 06:51
DX: M54.5 Low back pain (principal); G03.9 Meningitis, unspecified; Z88.0 Allergy status to penicillin; Z91.030 Bee allergy status; Z79.899 Other long term (current) drug therapy; Z79.891 Long term (current) use of opiate analgesic

== ENCOUNTER → 2019-01-03 | Outpatient (CLI) | payer OTHER ==
[~2019-01-03] VITALS: Ht 182.9 cm; Wt 95.3 kg
[~2019-01-03] MED LIST changes: +ZANAFLEX4 MG PO
[2019-01-03 09:17] VITALS: BP 128/78
--- NOTE | 2019-01-03 09:18 | NUR ---
Pain Clinic Assessment: 1. History of Osteoarthritis: Not Applicable History of Rheumatoid Arthritis: Not Applicable 2. Height: 6 ft. 0 in. 182.9 cm. Weight: 210.2 lb. oz. 95.346 kg. Patient's BMI: 28.5 3. Vital Signs: BP: 128/78 Pulse: 98 Resp: 14 Temp: 02 Sat: 98 ECG Mon: 4. Pain Intensity: 6 5. Fall Risk: Dizziness: N Needs help standing or walking: N Fallen in the last 3 months: Y Fall risk comments: 6. Patient on Blood Thinner: None 7. History of Hypertension: N 8. Opioid Therapy greater than 6 weeks: Y Opiate Contract Signed: 04/26/18 9. Risk Assessment Tool Provided: sheldon 10. Functional Assessment Tool: 11. Recreational Drug Use: Never Drug Type: Tobacco Use: Never Smoker Tobacco Type: Amount or Packs/day: How Many Years: Alcohol Use: No Frequency: Quant:
--- NOTE | 2019-01-08 09:13 | HPC ---
[facility] [address] [place] [address] PAIN MANAGEMENT CONSULTATION Name: FELA VICTOR Room #: REG [facility].#: [id number] Admission: 01/03/19 Attend Phys: Fang Mcfadden Discharge: Date of : 66 Report #: [id number] THIS REPORT FOR: //name// CC: Maine Mcfadden DATE OF SERVICE: 01/03/2019 CHIEF COMPLAINT: Chronic low back pain with radiculopathy to bilateral feet. History of arachnoiditis. HISTORY OF PRESENT ILLNESS: This is a 48-year-old gentleman who returns to the pain clinic today for refill of his medications. He tells me that he has been having a rough couple of months, his pain has increased and he is not sleeping as well, mostly related to spasms and cramping in his bilateral legs. He said this has been going on for the last month, he has increased his oxcarbazepine back to 3 times a day. This has been slightly beneficial in helping with his leg pain and feet pain. He tells me rarely he experiences low back pain. His pain score today is a 6/10, worse again with activity, but better with hot showers and stretching and medication. He would like a refill of medications and possibly slight changes in them if he is able today. ALLERGIES: BEE STINGS, PENICILLIN AND CAFFEINE. CURRENT LIST OF MEDICATIONS: OxyIR 15 mg p.r.n., fentanyl 37 mcg patch, gabapentin 600 mg t.i.d., tizanidine 2 mg p.r.n., Trileptal 150 mg b.i.d. PQRS: 1. He does not take medicines or being treated for osteoarthritis or rheumatoid arthritis. 2. Height is 6 feet, weight is 210, and BMI is 28. 3. Vital signs 128/78, pulse is 96, respirations 14, oxygen sat is 98%. 4. Pain score 6/10. 5. Denies dizziness, does not need help walking or standing, has fallen in the last 3 months. 6. The patient is not on any blood thinners, but does not take medicines for hypertension. 7. Opioid therapy is greater than 6 weeks; therefore, an opioid signed contract is on the chart. Risk assessment tool is low. Functional assessment is . 8. Recreational drug use, he denies. He is not a smoker, but does chew tobacco products and he does not drink alcohol. According to the prescription monitoring system, the patient is past due to fill his prescriptions and there is a recent drug screen [place] the [place] [address] PAIN MANAGEMENT CONSULTATION Name: FELA VICTOR Room #: REG [facility]#: [id number] Admission: 01/03/19 Attend Phys: Fang Mcfadden Discharge: Date of : 66 Report #: [id number] PHYSICAL EXAMINATION: GENERAL: This is a well-developed, well-nourished, well-hydrated 48-year-old gentleman who appears his stated age, placing his current pain score at 6/10 today. HEENT: Normocephalic, atraumatic. Extraocular muscles are intact. Mucous membranes are moist. Sclerae are slightly reddened today. MUSCULOSKELETAL: He has a spastic gait. He has left foot drop on the left, has AFO, not currently wearing this again today. Pain in his bilateral legs follows the L5 dermatomal distribution. Lower extremity strength judged to be 4/5 in all major muscle groups. ASSESSMENT: 1. 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 2. Arachnoiditis. 3. Management of high risk medications under terms of written opioid agreement. We reviewed the fact that opiate medications are being used to provide analgesia adequate to support activities of daily living, not attempting to achieve a specific pain score on the 0-10 Visual Analog Scale. The current opiate medications are providing sufficient analgesia to allow the patient to participate in activities of daily living. The patient is not exhibiting any aberrant behavior suggestive of drug diversion. The patient is not having any adverse reactions to medications. The patient is not suffering from daytime somnolence or mental acuity changes. The patient is managing opiate-induced constipation with appropriate tfmw-gpl-yhldnhs agents and dietary considerations. The patient was counseled on concern for caution with operating a motor vehicle while using opiate medications. A physical exam was performed and the patient's functional status was evaluated. All patients with back pain were advised against the bed rest greater than 4 days and were advised to return to normal activities. Pain score assessment was noted and the treatment plan was reviewed with the patient. All current medications, both prescribed and OTC were reviewed and reconciled on the electronic medical record. Tobacco screening was accomplished and smoking cessation was advised when indicated. BMI was noted and diet/exercise modification was recommended for all patients following outside normal parameters. I reviewed with the patient today their responsibilities to safeguard prescription medications, reviewed their responsibility to utilize medications only as prescribed by the physician. They are to seek and receive pain medications only from 1 physician group ( [facility]). They are to use 1 pharmacy and keep the clinic informed if they change pharmacies. Their responsibilities include making followup visits in a timely fashion and to avoid abrupt discontinuation of medication usage. Their responsibilities further include bringing their medications (bottles from the pharmacy with residual [facility] [address] [place] [address] PAIN MANAGEMENT CONSULTATION Name: FELA VICTOR Room #: REG [facility]#: [id number] Admission: 01/03/19 Attend Phys: Fang FARAH Bogdan Discharge: Date of : 66 Report #: [id number] pills) to the visit for possible confirmation of pill counts and the patient understands it is their responsibility to submit to random drug screens to ensure both that the medications prescribed are present, and that no other controlled substances are present. All prescriptions provided today were generated electronically. PLAN: 1. We discussed treatment options with the patient today. The patient is having increased cramping and spasms in his legs throughout the day and especially at night. I think he may benefit from increase in his tizanidine to 4 mg at bedtime. He is able to take 4 during the day as needed or he may split these to take 2 mg if his spasms are less throughout the day. Scripts given for #90 of 4 mg tizanidine with 2 additional refills. 2. We will continue on his fentanyl 25 mcg plus a 12 mcg patch every 48 hours, quantity 15 given today with our hope that in the next month we will decrease this to 25 mcg only. He is on a high level of narcotics according to the CDC guidelines. Though he continues to be quite active. 3. Scripts given for oxycodone 15 mg, #45. 4. Oxcarbazepine 150 #90 with 2 additional refills. This is an increase but back to his original dose since he is having more pain. 5. Neurontin 600 mg t.i.d., #90 with 2 additional refills was also given. 6. Appointment made for 1 month. Patient's care was discussed with Dr. Andres Christina. He was available by phone today for collaboration, which I did discuss with him. The patient is seen today in collaboration with Dr. Greg Victor. <ELECTRONICALLY SIGNED> By: Fang Mcfadden 01/08/19 0913 [id number] Fang Mcfadden /nt
== END ==
LOC: PAIN 12-27 06:50
DX: M54.16 Radiculopathy, lumbar region (principal); G03.9 Meningitis, unspecified; Z79.891 Long term (current) use of opiate analgesic; Z91.030 Bee allergy status; Z79.899 Other long term (current) drug therapy; Z88.0 Allergy status to penicillin

== ENCOUNTER → 2019-02-01 | Outpatient (CLI) | payer OTHER ==
[~2019-02-01] VITALS: Ht 182.9 cm; Wt 105.1 kg
[2019-02-01 10:22] VITALS: BP 113/74
--- NOTE | 2019-02-01 10:25 | NUR ---
Pain Clinic Assessment: 1. History of Osteoarthritis: Not Applicable History of Rheumatoid Arthritis: Not Applicable 2. Height: 6 ft. 0 in. 182.9 cm. Weight: 231.8 lb. oz. 105.144 kg. Patient's BMI: 31.4 3. Vital Signs: BP: 113/74 Pulse: 43 Resp: 14 Temp: 02 Sat: 98 ECG Mon: 4. Pain Intensity: 4 5. Fall Risk: Dizziness: N Needs help standing or walking: N Fallen in the last 3 months: N Fall risk comments: 6. Patient on Blood Thinner: None 7. History of Hypertension: N 8. Opioid Therapy greater than 6 weeks: Y Opiate Contract Signed: 04/26/18 9. Risk Assessment Tool Provided: sheldon 10. Functional Assessment Tool: 11. Recreational Drug Use: Never Drug Type: Tobacco Use: Never Smoker Tobacco Type: Amount or Packs/day: How Many Years: Alcohol Use: No Frequency: Quant:
--- NOTE | 2019-02-04 08:47 | HPC ---
[facility] [address] [place] [address] PAIN MANAGEMENT CONSULTATION Name: FELA VICTOR Room #: REG [facility].#: [id number] Admission: 02/01/19 Attend Phys: Fang Mcfadden Discharge: Date of : 66 Report #: [id number] THIS REPORT FOR: //name// CC: [place] Christina MD DATE OF SERVICE: 02/01/2019 CHIEF COMPLAINT: Chronic low back pain with radiculopathy and the history of arachnoiditis. HISTORY OF PRESENT ILLNESS: This is a 48-year-old gentleman, who returned to the pain clinic today for a refill of his medications. He seems slightly depressed today and down and quiet compared to normal visits. He reports that he is not feeling the energy that he normally feels. He tells me it is not related to pain. He just has a lack of motivation recently. He is going to see his primary doctor to have her run labs. He feels that maybe his vitamins are low. In the past, he has needed vitamin B12 injections. In relation to his pain, it is in his lower back, bilateral buttocks, and into his legs and feet. It is a burning, shooting, and cramping pain that he rates a 4/10 today. It is worse with activity and better with his medication. He does continue to be as active as possible, golf several days a week. Today, he is here for refills of his fentanyl patch. ALLERGIES: BEE STING, PENICILLIN, and CAFFEINE. CURRENT LIST OF MEDICATIONS: Gabapentin 600 mg t.i.d., oxcarbazepine 150 mg t.i.d., tizanidine 4 mg t.i.d. p.r.n., oxycodone 15 mg p.r.n., and fentanyl 25 plus 12, 37 mcg every 72 hours. PQRS: 1. He is not being treated for osteoarthritis or rheumatoid arthritis. 2. Height is 6 feet, weight is 231, BMI is 31. 3. Vital signs 113/74, pulse is 43, respirations 14, and oxygen sat is 98. 4. Pain score is 4/10. 5. Denies dizziness, does not need help walking or standing, has not fallen in the last 3 months. 6. The patient is not on any blood thinners or medicine for hypertension. 7. Opioid therapy is greater than 6 weeks. Therefore, an opioid signed contract is on the chart. His risk assessment tool is low. Functional assessment is . 8. Recreational drug use, he denies. He is not a smoker and does not drink alcohol. [address] [address] PAIN MANAGEMENT CONSULTATION Name: FELA VICTOR Cody Room #: REG [facility] Jerardo#: [id number] Admission: 02/01/19 Attend Phys: Fang Mcfadden Discharge: Date of : 66 Report #: [id number] According to the prescription monitoring system, patient is filling appropriately for his medications in a timely fashion. He is due for those to be filled today. There is a recent drug screen on the chart that is appropriate as well. PHYSICAL EXAMINATION: GENERAL: This is a well-developed, well-nourished, and well-hydrated 48-year-old gentleman, who appears his stated age, placing his current pain score at 4/10. Slightly more depressed today. HEENT: Normocephalic and atraumatic. Extraocular eye muscles are intact. Mucous membranes are moist. MUSCULOSKELETAL: He has a spastic gait. Foot drop on the left, which he wears an AFO. Pain is in his lower back that radiates into his bilateral legs following a L5 dermatomal distribution. His lower extremity strength is judged to be 5/5 in all major muscle groups. ASSESSMENT: 1. 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 2. Arachnoiditis. 3. Management of high risk medications under terms of written opioid agreement. We reviewed the fact that opiate medications are being used to provide analgesia adequate to support activities of daily living, not attempting to achieve a specific pain score on the 0-10 Visual Analog Scale. The current opiate medications are providing sufficient analgesia to allow the patient to participate in activities of daily living. The patient is not exhibiting any aberrant behavior suggestive of drug diversion. The patient is not having any adverse reactions to medications. The patient is not suffering from daytime somnolence or mental acuity changes. The patient is managing opiate-induced constipation with appropriate ifkf-sab-bggcszs agents and dietary considerations. The patient was counseled on concern for caution with operating a motor vehicle while using opiate medications. A physical exam was performed and the patient's functional status was evaluated. All patients with back pain were advised against the bed rest greater than 4 days and were advised to return to normal activities. Pain score assessment was noted and the treatment plan was reviewed with the patient. All current medications, both prescribed and OTC were reviewed and reconciled on the electronic medical record. Tobacco screening was accomplished and smoking cessation was advised when indicated. BMI was noted and diet/exercise modification was recommended for all patients following outside normal parameters. I reviewed with the patient today their responsibilities to safeguard prescription medications, reviewed their responsibility to utilize medications only as prescribed by the physician. They are to seek and receive pain [address] [address] PAIN MANAGEMENT CONSULTATION Name: FELA VICTOR Room #: REG [facility]#: [id number] Admission: 02/01/19 Attend Phys: Fang Mcfadden Discharge: Date of : 66 Report #: [id number] medications only from 1 physician group ( [facility]). They are to use 1 pharmacy and keep the clinic informed if they change pharmacies. Their responsibilities include making followup visits in a timely fashion and to avoid abrupt discontinuation of medication usage. Their responsibilities further include bringing their medications (bottles from the pharmacy with residual pills) to the visit for possible confirmation of pill counts and the patient understands it is their responsibility to submit to random drug screens to ensure both that the medications prescribed are present, and that no other controlled substances are present. All prescriptions provided today were generated electronically. PLAN: 1. We discussed the treatment options with the patient today. The patient believes his medications are very beneficial in controlling his pain, rating it at 4 today. Refills given for his fentanyl patch 25 mcg, #15, and fentanyl patch 12 mcg, #15 and this is a total of 37 mcg daily. The patient is given a 1-month supply. His mme is 110 according to the CDC guidlines, again he is seen monthly and this is a decrease in his medication. 2. Oxycodone 15 mg, #45 given, patient takes these on an as needed basis very sparingly. 3. No scripts needed for his tizanidine, gabapentin, and oxcarbazepine. The patient does feel that using a half of his tizanidine throughout the day has been very beneficial in reducing some of his spasms. 4. The patient is seen today in collaboration with Dr. Herbie Elkins, who did see the patient as well. The patient is encouraged to make an appointment with Dr. Andres Christina at his next monthly visit. <ELECTRONICALLY SIGNED> By: Fang Mcfadden 02/04/19 0847 [id number] Fang Mcfadden /nt
== END ==
LOC: PAIN 07:08
DX: Z76.0 Encounter for issue of repeat prescription (principal); M54.16 Radiculopathy, lumbar region; G89.29 Other chronic pain; M19.90 Unspecified osteoarthritis, unspecified site; M06.9 Rheumatoid arthritis, unspecified; I10 Essential (primary) hypertension; Z79.891 Long term (current) use of opiate analgesic; Z79.899 Other long term (current) drug therapy; Z88.0 Allergy status to penicillin; Z88.5 Allergy status to narcotic agent

== ENCOUNTER → 2019-03-01 | Outpatient (CLI) | payer OTHER ==
[~2019-03-01] VITALS: Ht 185.4 cm; Wt 94.8 kg
[~2019-03-01] MED LIST changes: +DURAGESIC1 EAC2 TOP
[2019-03-01 10:02] VITALS: BP 125/85
--- NOTE | 2019-03-01 10:08 | NUR ---
Pain Clinic Assessment: 1. History of Osteoarthritis: LEFT PINKY FINGER History of Rheumatoid Arthritis: PSORIATIC ARTHRITIS 2. Height: 6 ft. 1 in. 185.4 cm. Weight: 209.0 lb. oz. 94.802 kg. Patient's BMI: 27.6 3. Vital Signs: BP: 125/85 Pulse: 80 Resp: 16 Temp: 02 Sat: 96 ECG Mon: 4. Pain Intensity: 4-RESTING AVG, 8-ACTIVITY 5. Fall Risk: Dizziness: Y Needs help standing or walking: N Fallen in the last 3 months: Y Fall risk comments: 6. Patient on Blood Thinner: None 7. History of Hypertension: N 8. Opioid Therapy greater than 6 weeks: Y Opiate Contract Signed: 04/26/18 9. Risk Assessment Tool Provided: sheldon 10. Functional Assessment Tool: 11. Recreational Drug Use: Never Drug Type: Tobacco Use: Never Smoker Tobacco Type: Amount or Packs/day: How Many Years: Alcohol Use: No Frequency: Quant:
--- NOTE | 2019-03-04 07:59 | HPC ---
[facility] [address] [place] [address] PAIN MANAGEMENT CONSULTATION Name: FELA VICTOR Room #: REG [facility].#: [id number] Admission: 03/01/19 Attend Phys: Fang Mcfadden Discharge: Date of : 66 Report #: [id number] THIS REPORT FOR: //name// CC: Maine Christina MD DATE OF SERVICE: 03/01/2019 CHIEF COMPLAINT: Chronic low back pain with radiculopathy, history of arachnoiditis. HISTORY OF PRESENT ILLNESS: This is a 48-year-old gentleman who returns to the pain clinic today for refill of his medications that he has been stable on for a while, though he does report that he is having some increased pain, pain that is in his upper hips that radiates to his feet. He has also been having headaches. He reports a pain score of 4/10 with resting and 8/10 with any activity, though he tries to be as active as possible. He plays golf in the summer, but since it has been cold earlier this year, he has not been able to play as he normally does. His pain is a burning, sharp, shooting, cramping pain. He feels as though the medications do benefit him as well as hot water and distraction and stretching. He denies problems with constipation or daytime sleepiness. Today, he is requesting a prescription of fentanyl 37 mcg patch that his pharmacist reports he is able to get for him instead of fentanyl 12mcg patch and a fentanyl 25 mcg patch. ALLERGIES: BEE STINGS, PENICILLIN and CAFFEINE. CURRENT MEDICATIONS: Oxycodone 15 mg every 8 hours p.r.n., fentanyl 37 mcg, gabapentin 600 mg t.i.d., oxcarbazepine 150 mg b.i.d., and tizanidine 4 mg p.r.n. PQRS: 1. He is not being treated for osteoarthritis. He has psoriatic arthritis and not being treated for. 2. Height is 6 feet 1 inch, weight is 209, BMI is 27. 3. Vital signs 125/85, pulse is 80, respirations 16, oxygen sat is 96. 4. Pain score 4-8. 5. Complains of slight dizziness, does not need help walking or standing, has fallen in the last 3 months, but did not seek medical attention. 6. He is not on any blood thinners or medicine for hypertension. 7. Opioid therapy is greater than 6 weeks; therefore, an opioid signed contract is on the chart. Risk assessment tool is low. Functional assessment is . 8. Recreational drug use, he denies. He is not a smoker and does not drink alcohol. [address] [address] PAIN MANAGEMENT CONSULTATION Name: VALENTEFELA Cody Room #: REG CLWolf Kurtz#: [id number] Admission: 03/01/19 Attend Phys: Fang Mcfadden Discharge: Date of : 66 Report #: [id number] According to the prescription monitoring system, the patient is filling appropriately for his medications. He is due to fill next week. There is a recent drug screen on the chart that is appropriate as well. PHYSICAL EXAMINATION: GENERAL: This is a well-developed, well-nourished, well-hydrated 48-year-old gentleman who appears his stated age, placing his current pain score from 4-8 today. HEENT: Normocephalic, atraumatic. Extraocular eye muscles are intact. Mucous membranes are moist. MUSCULOSKELETAL: He does have a spastic gait. He has an AFO on his left foot related to his left foot drop. He is complaining of bilateral hip pain that radiates into his bilateral feet. Lower extremity strength judged to be 5/5 in all major muscle groups. His pain follows the L5 dermatomal distribution. ASSESSMENT: 1. 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 2. Arachnoiditis. 3. Management of high risk medications under terms of written opioid agreement. We reviewed the fact that opiate medications are being used to provide analgesia adequate to support activities of daily living, not attempting to achieve a specific pain score on the 0-10 Visual Analog Scale. The current opiate medications are providing sufficient analgesia to allow the patient to participate in activities of daily living. The patient is not exhibiting any aberrant behavior suggestive of drug diversion. The patient is not having any adverse reactions to medications. The patient is not suffering from daytime somnolence or mental acuity changes. The patient is managing opiate-induced constipation with appropriate gplc-pnc-hghfmjc agents and dietary considerations. The patient was counseled on concern for caution with operating a motor vehicle while using opiate medications. A physical exam was performed and the patient's functional status was evaluated. All patients with back pain were advised against the bed rest greater than 4 days and were advised to return to normal activities. Pain score assessment was noted and the treatment plan was reviewed with the patient. All current medications, both prescribed and OTC were reviewed and reconciled on the electronic medical record. Tobacco screening was accomplished and smoking cessation was advised when indicated. BMI was noted and diet/exercise modification was recommended for all patients following outside normal parameters. I reviewed with the patient today their responsibilities to safeguard prescription medications, reviewed their responsibility to utilize medications only as prescribed by the physician. They are to seek and receive pain [address] [address] PAIN MANAGEMENT CONSULTATION Name: FELA VICTOR Room #: REG [facility]#: [id number] Admission: 03/01/19 Attend Phys: Fang SOFI Bogdan Discharge: Date of : 66 Report #: [id number] medications only from 1 physician group ( [facility]). They are to use 1 pharmacy and keep the clinic informed if they change pharmacies. Their responsibilities include making followup visits in a timely fashion and to avoid abrupt discontinuation of medication usage. Their responsibilities further include bringing their medications (bottles from the pharmacy with residual pills) to the visit for possible confirmation of pill counts and the patient understands it is their responsibility to submit to random drug screens to ensure both that the medications prescribed are present, and that no other controlled substances are present. All prescriptions provided today were generated electronically. PLAN: 1. We discussed treatment options with the patient today. The patient informs me that his pharmacist has informed him he is able to get fentanyl 37.5 mcg patches for him. This would decrease his cost significantly since he does take this amount every 48 hours in the strength of 25+12. I will write for these medications today under the direction with Dr. Herbie Elkins but informed him if they are unable to get the strength because we do not have that in our system that he is to call and inform us and we will electronically send a prescription on Monday under Dr. Christina's direction to his pharmacy. The patient verbalizes understanding that it will save him several hundred dollars a month if he is able to get the 37 mcg patches. We will send #15 today. The patient is on a very high dose of morphine at 170 according to the CDC guidelines. 2. Oxycodone 15 mg, #45 also refilled today. The patient does take these sparingly 1 to 1-1/2 tablets a day. 3. The patient is not needing gabapentin or oxcarbazepine today. He is going to try and decrease his gabapentin slightly to see if he is able to tolerate it with no increase in pain. He feels that sometimes during the middle of the day, he has gotten dizzy and wondering if it may be from his gabapentin. I instructed him to take 600 in the morning, 300 midday for at least 2 weeks and 600 at night and then decrease again to 600 in the morning and 600 at night. If his symptoms of dizziness subside, then he is to remain at this lower dose. 4. The patient will be seen in [address]res [address]. Elkins did see the patient today and collaborated care. <ELECTRONICALLY SIGNED> By: Fang Mcfadden 03/04/19 0759 [id number] Fang Mcfadden /prasanth
== END ==
LOC: PAIN 06:50
DX: M54.16 Radiculopathy, lumbar region (principal); G03.9 Meningitis, unspecified; Z79.891 Long term (current) use of opiate analgesic

== ENCOUNTER → 2019-04-01 | Outpatient (CLI) | payer OTHER ==
[~2019-04-01] VITALS: Ht 182.9 cm; Wt 97.1 kg
[~2019-04-01] MED LIST changes: +FENTANYL1 EAC1 TRANSDERM
[2019-04-01 10:37] VITALS: BP 100/72
--- NOTE | 2019-04-01 10:59 | NUR ---
Pain Clinic Assessment: 1. History of Osteoarthritis: LEFT PINKY FINGER History of Rheumatoid Arthritis: PSORIATIC ARTHRITIS 2. Height: 6 ft. 0 in. 182.9 cm. Weight: 214.0 lb. oz. 97.070 kg. Patient's BMI: 29.0 3. Vital Signs: BP: 100/72 Pulse: 73 Resp: 14 Temp: 02 Sat: 98 ECG Mon: 4. Pain Intensity: 6 5. Fall Risk: Dizziness: Y Needs help standing or walking: N Fallen in the last 3 months: N Fall risk comments: 6. Patient on Blood Thinner: None 7. History of Hypertension: N 8. Opioid Therapy greater than 6 weeks: Y Opiate Contract Signed: 04/26/18 9. Risk Assessment Tool Provided: sheldon 10. Functional Assessment Tool: 11. Recreational Drug Use: Never Drug Type: Tobacco Use: Never Smoker Tobacco Type: Amount or Packs/day: How Many Years: Alcohol Use: No Frequency: Quant:
--- NOTE | 2019-04-08 12:21 | HPC ---
[facility] [place] [address] PAIN MANAGEMENT CONSULTATION Name: FELA VICTOR Room #: REG [facility].#: [id number] Admission: 04/01/19 Attend Phys: Andres Christina MD Discharge: Date of : 66 Report #: [id number] THIS REPORT FOR: //name// CC: Maine Christina DATE OF SERVICE: 04/01/2019 Followup visit for chronic pain with radiculopathy and arachnoiditis, myelopathy, spasticity and ataxia following traumatic injury in 2008. The patient returns to pain clinic today for consultation. I spent about 25 minutes with him [id number] discussing plans going forward to continue tapering with his medication. He has come a long way over the course of the last 2 years from high dose fentanyl and is now no worse perhaps better on 37.5 mcg of fentanyl every 48 hours and oxycodone allowed 45 breakthrough tablets in 30 days. In addition, he uses gabapentin, oxcarbazepine and tizanidine and denies significant side effects with combinations of these medications. He continues to play golf when he can and enjoys the sport. He is grateful that he is able to do this with the aid of the medication. He denies side effects of any sort including cognitive side effects. He carefully safeguards medications to make sure that no one is able to divert his medication from him. I have confirmed his prescription refills on the prescription drug monitoring program and there are no unexpected entries. Drug screens have been performed at her discretion. Still enjoys using heat and yoga as a way of providing some pain relief. He finds that his most comfortable position, believe it or not, is sitting in an Montserratian style position. He describes his pain as a whole leg pain radiating all the way down to the feet and pulsating. PQRS REVIEW: Positive for psoriatic arthritis. BMI is 29.0, blood pressure 100/72, heart rate 73. Pain intensity is 6/10. He is not a fall risk. He denies blood pressure medication or blood thinning medication. He is on an opioid agreement and we have reviewed it today. He is considered at low risk for addiction with an opioid risk assessment tool score of 0. Functional assessment score is improving with a 31/70 noted today. Denies use of tobacco, denies use of alcohol. PHYSICAL EXAMINATION: He is pleasant, mildly depressed. Moves independently [facility] [address] [place] [address] PAIN MANAGEMENT CONSULTATION Name: FELA VICTOR [facility] [id number] Admission: 04/01/19 Attend Phys: Andres Christina MD Discharge: Date of : 66 Report #: [id number] from sitting to standing position. His gait is mildly spastic. He has discomfort and tenderness bilaterally in the lower extremities. He has an AFO on his left foot due to the left foot drop. He has less pain in his hips that he had at last visit. Strength is 5/5 bilateral in lower extremities. IMPRESSION: 1. 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 2. Management of high risk medications. PLAN: I renewed his medications under terms of our written agreement. Plan to see him back in 2 months. He will carefully safeguard his medications. There have been no changes in his medication at today's visit. We do plan in the spring to taper him further and much of our discussion today was to an ultimate goal of being off of opioids. We will make these moves in a downward direction gradually over the next year or two. I would favor getting him off of the baseline opioid using only breakthrough medication. We discussed rationale for this prior to his discharge. <ELECTRONICALLY SIGNED> By: Andres Christina MD 04/08/19 1221 [id number] [id number] Andres Christina MD /nt
== END ==
LOC: PAIN 06:50
DX: G89.4 Chronic pain syndrome (principal); R25.2 Cramp and spasm; G03.9 Meningitis, unspecified

== ENCOUNTER → 2019-05-30 | Outpatient (CLI) | payer OTHER ==
[~2019-05-30] VITALS: Ht 182.9 cm; Wt 95.8 kg
[~2019-05-30] MED LIST changes: +ZANAFLEX4 M2 PO
[2019-05-30 10:02] VITALS: BP 123/86
--- NOTE | 2019-05-30 10:10 | NUR ---
Pain Clinic Assessment: 1. History of Osteoarthritis: LEFT PINKY FINGER BACK History of Rheumatoid Arthritis: PSORIATIC ARTHRITIS 2. Height: 6 ft. 0 in. 182.9 cm. Weight: 211.2 lb. oz. 95.800 kg. Patient's BMI: 28.6 3. Vital Signs: BP: 123/86 Pulse: 85 Resp: 16 Temp: 02 Sat: 97 ECG Mon: 4. Pain Intensity: 3 5. Fall Risk: Dizziness: N Needs help standing or walking: N Fallen in the last 3 months: N Fall risk comments: 6. Patient on Blood Thinner: None 7. History of Hypertension: N 8. Opioid Therapy greater than 6 weeks: Y Opiate Contract Signed: 04/26/18 9. Risk Assessment Tool Provided: sheldon 10. Functional Assessment Tool: 11. Recreational Drug Use: Never Drug Type: Tobacco Use: Never Smoker Tobacco Type: Amount or Packs/day: How Many Years: Alcohol Use: No Frequency: Quant:
--- NOTE | 2019-05-30 16:18 | HPC ---
[facility] [address] [place] [address] PAIN MANAGEMENT CONSULTATION Name: FELA VICTOR [facility] [id number] Admission: 05/30/19 Attend Phys: Fang Mcfadden Discharge: Date of : 66 Report #: [id number] THIS REPORT FOR: cc: Maine Dubois MD,Maine Mcfadden,Fang FARAH ~ THIS REPORT FOR: //name// CC: Maine Mcfadden DATE OF SERVICE: 05/30/2019 CHIEF COMPLAINT: Chronic pain with radiculopathy and arachnoiditis, myelopathy. HISTORY OF PRESENT ILLNESS: This is a 48-year-old gentleman who returns to the pain clinic today for refill of his medication. He is under the understanding that we are decreasing his medications slightly today. We have been decreasing him slowly over the past year and a half. The patient has been doing quite well with this decrease, rating his pain score today at 3/10, currently on a 37 mcg fentanyl patch and occasional oxycodone. Patient is reporting his pain in his lower back and his bilateral legs and feet. It is a burning, aching pain, worse with activity and movement, though he does continue to be active and plays golf several times a week for at least work out at the driving range. He feels the medication as well as stretching and distraction are very beneficial. ALLERGIES: BEE STING, PENICILLIN AND CAFFEINE. CURRENT LIST OF MEDICATIONS: Oxycodone 15 mg p.r.n., Duragesic patch 37 mcg every 48 hours, gabapentin 600 mg t.i.d., oxcarbazepine 150 mg t.i.d., tizanidine 4 mg p.r.n. PQRS: 1. He is positive for psoriatic arthritis and osteoarthritis positive as well. 2. Height is 6 feet, weight is 211, BMI is 28. 3. Vital signs 123/86, pulse is 85, respirations 16, oxygen sat is 97%. 4. Pain score is 3/10. 5. Denies dizziness, does not need assistance with walking, has not fallen in the last 3 months. 6. The patient is not on any blood thinners or medicine for hypertension. 7. Opioid therapy is greater than 6 weeks; therefore, an opioid signed contract on the chart. 8. Risk assessment tool is low. Functional assessment is . 9. Recreational drug use, he denies. He is not a smoker [place] [address] PAIN MANAGEMENT CONSULTATION Name: FELA VICTOR Room #: REG [facility].#: [id number] Admission: 05/30/19 Attend Phys: Fang Mcfadden Discharge: Date of : 66 Report #: [id number] According to the prescription monitoring system, the patient is filling appropriately for his medications, filling them in a timely fashion. His morphine mEq is quite high 123 MME according to his current regimen which we will be decreasing again today. We will be decreasing him to 105 MME today. PHYSICAL EXAMINATION: GENERAL: This is alert and orientated 48-year-old gentleman who appears his stated age slightly anxious, placing his current pain score at 3/10 today. HEENT: Normocephalic, atraumatic. Extraocular eye muscles are intact. Mucous membranes are moist. MUSCULOSKELETAL: The patient has pain and discomfort in his bilateral lower extremities. He has an AFO brace on his left foot due to left foot drop. His strength is equal bilaterally at 5/5 in his lower extremities. He does have spastic gait. He moves independently from a standing to sitting position without the use of any assistive devices. IMPRESSION: 1. Chronic intractable pain with myelopathy, spasticity. 2. 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 3. Management of high risk medications under terms of written opioid agreement. We reviewed the fact that opiate medications are being used to provide analgesia adequate to support activities of daily living, not attempting to achieve a specific pain score on the 0-10 Visual Analog Scale. The current opiate medications are providing sufficient analgesia to allow the patient to participate in activities of daily living. The patient is not exhibiting any aberrant behavior suggestive of drug diversion. The patient is not having any adverse reactions to medications. The patient is not suffering from daytime somnolence or mental acuity changes. The patient is managing opiate-induced constipation with appropriate iopz-kjl-cisezdv agents and dietary considerations. The patient was counseled on concern for caution with operating a motor vehicle while using opiate medications. A physical exam was performed and the patient's functional status was evaluated. All patients with back pain were advised against the bed rest greater than 4 days and were advised to return to normal activities. Pain score assessment was noted and the treatment plan was reviewed with the patient. All current medications, both prescribed and OTC were reviewed and reconciled on the electronic medical record. Tobacco screening was accomplished and smoking cessation was advised when indicated. BMI was noted and diet/exercise modification was recommended for all patients following outside normal parameters. I reviewed with the patient today their responsibilities to [facility] [address] [address] PAIN MANAGEMENT CONSULTATION Name: FELA VICTOR Room #: REG CLWolf Kurtz#: [id number] Admission: 05/30/19 Attend Phys: Fang Mcfadden Discharge: Date of : 66 Report #: [id number] prescription medications, reviewed their responsibility to utilize medications only as prescribed by the physician. They are to seek and receive pain medications only from 1 physician group ( [facility]). They are to use 1 pharmacy and keep the clinic informed if they change pharmacies. Their responsibilities include making followup visits in a timely fashion and to avoid abrupt discontinuation of medication usage. Their responsibilities further include bringing their medications (bottles from the pharmacy with residual pills) to the visit for possible confirmation of pill counts and the patient understands it is their responsibility to submit to random drug screens to ensure both that the medications prescribed are present, and that no other controlled substances are present. All prescriptions provided today were generated electronically. PLAN: 1. We discussed treatment options with the patient again today. It was decided that we would decrease his fentanyl patch from 37 mcg to 25 today. We will increase his oxycodone by 15 pills per month, therefore, decreasing his overall morphine mEq from 123 a day to 105. We will continue this regimen for 2 months, then decrease his oxycodone back to 45 pills in a month. 2. Scripts will be sent electronically by Dr. Andres Christina for fentanyl 25 mcg patches, #15 for today and 4 weeks as well as oxycodone 15 mg, #60 for today and 4-week release. 3. I will send electronically his gabapentin 600 mg t.i.d., #90 with 2 additional refills, oxcarbazepine 150 mg t.i.d., #90 with 2 refills and tizanidine 4 mg t.i.d., #90 with 2 additional refills. The patient had attempted to decrease his oxcarbazepine and was off of it for 1 month before he realized that his pain had increased and he found that medication very beneficial. 4. The patient denies any problems with daytime sleepiness or constipation as a result of his medications. He also understands the interactions of opioids and benzodiapaines. The patient will follow up in 2 months. I had discussed his case with Dr. Andres Christina who collaborated care today. <ELECTRONICALLY SIGNED> By: Fang Mcfadden 05/30/19 1618 [id number] 1224 Fang Mcfadden /nt
== END ==
LOC: PAIN 06:48
DX: Z76.0 Encounter for issue of repeat prescription (principal); M54.16 Radiculopathy, lumbar region; G03.8 Meningitis due to other specified causes; G89.4 Chronic pain syndrome; L40.50 Arthropathic psoriasis, unspecified; M81.0 Age-related osteoporosis without current pathological fracture; I10 Essential (primary) hypertension; Z79.891 Long term (current) use of opiate analgesic; Z79.899 Other long term (current) drug therapy; Z88.0 Allergy status to penicillin

== ENCOUNTER → 2019-07-15 | Outpatient (CLI) | payer OTHER ==
[~2019-07-15] VITALS: Ht 182.9 cm; Wt 95.5 kg
[~2019-07-15] MED LIST changes: +GABAPENTIN600 M1 PO
[2019-07-15 10:05] VITALS: BP 119/80
--- NOTE | 2019-07-15 10:10 | NUR ---
Pain Clinic Assessment: 1. History of Osteoarthritis: LEFT PINKY FINGER BACK History of Rheumatoid Arthritis: PSORIATIC ARTHRITIS 2. Height: 6 ft. 0 in. 182.9 cm. Weight: 210.6 lb. oz. 95.528 kg. Patient's BMI: 28.6 3. Vital Signs: BP: 119/80 Pulse: 71 Resp: 14 Temp: 02 Sat: 96 ECG Mon: 4. Pain Intensity: 6 5. Fall Risk: Dizziness: N Needs help standing or walking: N Fallen in the last 3 months: N Fall risk comments: 6. Patient on Blood Thinner: None 7. History of Hypertension: N 8. Opioid Therapy greater than 6 weeks: Y Opiate Contract Signed: 04/26/18 9. Risk Assessment Tool Provided: sheldon 10. Functional Assessment Tool: 11. Recreational Drug Use: Never Drug Type: Tobacco Use: Never Smoker Tobacco Type: Amount or Packs/day: How Many Years: Alcohol Use: No Frequency: Quant:
--- NOTE | 2019-07-16 15:09 | HPC ---
[facility] [address] [place] [address] PAIN MANAGEMENT CONSULTATION Name: FELA VICTOR Room #: REG [facility]#: [id number] Admission: 07/15/19 Attend Phys: Fang Mcfadden Discharge: Date of : 66 Report #: [id number] THIS REPORT FOR: cc: Maine Dubois MD, Aimee B. 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 HISTORY OF PRESENT ILLNESS: This is a 48-year-old gentleman who returns to the pain clinic today for refill of his medications. He is rating his pain score as 6/10, which is slightly elevated today. We have been slowly decreasing his medications and had done that at his last visit. He states that he is still trying to adjust to the decrease in his medicine, stating he is noticing more burning and tingling in his feet. We did see him in May and he has yet to fill his last fentanyl patch, so he has been using those every 72 hours, so realistically, he has been decreasing more than our plan. The patient states that hot water, stretching and distraction does make his pain better. He continues to do yoga and is still golfing. He recently returned from [place] approximately 2 weeks ago where he was golfing and has been continuing to use the driving range here in town. ALLERGIES: BEE STINGS, PENICILLIN AND CAFFEINE. CURRENT LIST OF MEDICATIONS: Oxycodone 15 mg every 8 hours, fentanyl 25 mcg every 48 hours, gabapentin 600 three times a day, oxcarbazepine 150 three times a day and tizanidine 4 mg 3 times a day. PQRS: 1. He is positive for psoriatic arthritis and osteoarthritis in multiple joints. Denies any rheumatoid arthritis. His height is 6 feet, weight is 210, and BMI is 28. Vital signs, 119/80, pulse is 71, respirations 14, oxygen sat is 96. 2. Pain score 6/10. 3. Denies dizziness, does not need help walking or standing, has not fallen in the last 3 months. 4. The patient is not on any blood thinners or take medicine for hypertension. His opioid therapy is greater than 6 weeks; therefore, an opioid signed contract is on the chart. Risk assessment tool is low. Functional assessment is . 5. Recreational drug use, he denies. He is not a smoker and does not drink alcohol. According to the prescription monitoring system, the patient recently filled his [address] [address] PAIN MANAGEMENT CONSULTATION Name: FELA VICTOR Room #: REG [facility]#: [id number] Admission: 07/15/19 Attend Phys: Fang Mcfadden Discharge: Date of : 66 Report #: [id number] oxycodone, and is due for his fentanyl patch. He had not filled his 4-week fentanyl patch at this time. His morphine mEq according to the CDC guidelines is 105. There is a recent drug screen on the chart that is appropriate as well. PHYSICAL EXAMINATION: GENERAL: This is alert and orientated 48-year-old gentleman who appears his stated age, placing his current pain score at 6/10 today. He has a flat affect. HEENT: Normocephalic, atraumatic. Extraocular eye muscles are intact. Mucous membranes are moist. MUSCULOSKELETAL: He has discomfort in his lower extremities and tingly numbness in his bilateral feet. He is wearing his AFO on his left foot. He walks with a spastic gait, but able to move independently from the sitting to standing position with strength equal bilaterally at 5/5 in his lower extremities with good sensation. IMPRESSION: 1. Chronic intractable pain with myelopathy, spasticity. 2. 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 3. Management of high risk medications under terms of written opioid agreement. We reviewed the fact that opiate medications are being used to provide analgesia adequate to support activities of daily living, not attempting to achieve a specific pain score on the 0-10 Visual Analog Scale. The current opiate medications are providing sufficient analgesia to allow the patient to participate in activities of daily living. The patient is not exhibiting any aberrant behavior suggestive of drug diversion. The patient is not having any adverse reactions to medications. The patient is not suffering from daytime somnolence or mental acuity changes. The patient is managing opiate-induced constipation with appropriate yzvc-dlb-tqyvojj agents and dietary considerations. The patient was counseled on concern for caution with operating a motor vehicle while using opiate medications. PLAN: 1. We discussed treatment options with the patient today. The patient reports that it has been difficult decreasing from 37 mcg patch to 25, though he has been able to adjust taking some oxycodone, though he has not filled his second month of fentanyl, he was using up existing prescriptions. The patient is understanding that he will slowly adjust to the new medication levels, wondering if we are able to go 1 more month of his oxycodone at 60 and then decrease. He remembers last decrease it took about 6 months before he finally felt a new "normal." 2. Scripts will be sent electronically by Dr. Christina for fentanyl 25 mcg, #15 for 4-week supply and oxycodone 15 mg, #60 for the first script and #45 for the 4-week release. This will slowly decrease his morphine mEq again. 3. I will send gabapentin 600 mg t.i.d., #90 for 4 additional refills and oxcarbazepine 150 mg, #90 with 4 additional refills. The patient still has 2 [facility] [address] [place] [address] PAIN MANAGEMENT CONSULTATION Name: FELA VICTOR [facility] [id number] Admission: 07/15/19 Attend Phys: Fang Mcfadden Discharge: Date of : 66 Report #: [id number] tizanidine scripts on file. 4. The patient is seen today in collaboration with Dr. Andres Christina. The patient will return in 2 months. We did discuss the COVID-19 virus and decrease in his med as much as possible in case there is a disruption in the supply chain of his medication. The patient has been able to decrease further than what we are prescribing it on some days it is and does have a small supply at home. <ELECTRONICALLY SIGNED> By: Fang Mcfadden 07/16/19 1509 [id number] Fang Mcfadden /nt
== END ==
LOC: PAIN 06:39
DX: M54.10 Radiculopathy, site unspecified (principal); G89.29 Other chronic pain; G03.9 Meningitis, unspecified; F11.20 Opioid dependence, uncomplicated; G95.9 Disease of spinal cord, unspecified

== ENCOUNTER → 2019-09-19 | Outpatient (CLI) | payer OTHER ==
[~2019-09-19] VITALS: Ht 182.9 cm; Wt 96.8 kg
[2019-09-19 10:22] VITALS: BP 122/63
--- NOTE | 2019-09-19 10:31 | NUR ---
Pain Clinic Assessment: 1. History of Osteoarthritis: LEFT PINKY FINGER BACK History of Rheumatoid Arthritis: PSORIATIC ARTHRITIS 2. Height: 6 ft. 0 in. 182.9 cm. Weight: 213.4 lb. oz. 96.798 kg. Patient's BMI: 28.9 3. Vital Signs: BP: 122/63 Pulse: 55 Resp: 16 Temp: 02 Sat: 97 ECG Mon: 4. Pain Intensity: 3 5. Fall Risk: Dizziness: N Needs help standing or walking: N Fallen in the last 3 months: N Fall risk comments: 6. Patient on Blood Thinner: None 7. History of Hypertension: N 8. Opioid Therapy greater than 6 weeks: Y Opiate Contract Signed: 04/26/18 9. Risk Assessment Tool Provided: sheldon 10. Functional Assessment Tool: 11. Recreational Drug Use: Never Drug Type: Tobacco Use: Never Smoker Tobacco Type: Amount or Packs/day: How Many Years: Alcohol Use: No Frequency: Quant:
--- NOTE | 2019-09-24 07:37 | HPC ---
[facility] [address] PAIN MANAGEMENT CONSULTATION Name: FELA VICTOR Room #: REG [facility]#: [id number] Admission: 09/19/19 Attend Phys: Fang Mcfadden Discharge: Date of : 66 Report #: [id number] THIS REPORT FOR: cc: Maine Dubois MD, Aimee B. MD Hocker, Amanda CNS ~ CC: Andres Christina MD DATE OF SERVICE: 09/19/2019 CHIEF COMPLAINT: Chronic pain with radiculopathy and arachnoiditis and myelopathy. HISTORY OF PRESENT ILLNESS: This is a very pleasant 48-year-old gentleman who returns to the pain clinic today to discuss his opioid medications. He does report his pain score at 3/10 today, stating that his pain is in his lower back, buttocks, legs and feet. He does have cramping in his lower extremities, especially in hot weather, though he does manage that. He feels that the warmer temperatures do decrease his pain. He is rating that today at 3/10. Since we had seen him in July, he has been able to decrease the time that he wears his patch from 48 hours to 72 hours. He is not experiencing any increase in pain due to this change. Today, he is requesting to have his fentanyl patches #10 instead of #15 for a month. He does continue to use his oxycodone dose sparingly, uses those especially when he is active and playing golf. The patient did bring a paper today with him asking questions about naloxone. He states he has a friend that does use this medication for pain and is wondering if that is something that would be beneficial for him. ALLERGIES: BEE STINGS, PENICILLIN AND CAFFEINE. CURRENT MEDICATIONS: Oxycodone 15 mg p.r.n., fentanyl patch 25 mcg every 72 hours, gabapentin 600 mg 3 times a day, oxcarbazepine 150 mg t.i.d., and tizanidine 4 mg t.i.d. PQRS: 1. Positive for psoriatic arthritis and osteoarthritis of multiple joints. 2. Height is 6 feet, weight is 213, BMI is 28. 3. Vital Signs: 122/63, pulse is 55, respirations 16, oxygen sat is 97%. 4. Pain score is 3/10. 5. Denies dizziness, does not need help walking or standing, has not fallen in the last 3 months. 6. The patient is not on any blood thinners or medicines for hypertension. 7. Opioid therapy is greater than 6 weeks; therefore, an opioid signed contract is on the chart. Risk assessment tool is low. Functional assessment is . 8. Recreational drug use, he denies. He is not a smoker and does not drink [address] [address] PAIN MANAGEMENT CONSULTATION Name: FELA VICTOR Room #: REG [facility]#: [id number] Admission: 09/19/19 Attend Phys: Fagn Mcfadden Discharge: Date of : 66 Report #: [id number] alcohol. PHYSICAL EXAMINATION: GENERAL: This is a well-developed, well-nourished, alert and orientated 48-year-old gentleman who appears his stated age, placing his current pain score at 3/10 today. HEENT: Normocephalic, atraumatic. Extraocular eye muscles are intact. He is wearing a mask. MUSCULOSKELETAL: He walks with spastic gait, but able to move independently from the sitting to standing position. His strength is equal in his lower extremities with good sensation. Has cramping in his lower right leg with activity. He has discomfort in his lower extremities with numbness and tingling in his feet. IMPRESSION: 1. Chronic intractable pain with myelopathy and spasticity. 2. 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 3. Management of high risk medications under terms of written opioid agreement. We reviewed the fact that opiate medications are being used to provide analgesia adequate to support activities of daily living, not attempting to achieve a specific pain score on the 0-10 Visual Analog Scale. The current opiate medications are providing sufficient analgesia to allow the patient to participate in activities of daily living. The patient is not exhibiting any aberrant behavior suggestive of drug diversion. The patient is not having any adverse reactions to medications. The patient is not suffering from daytime somnolence or mental acuity changes. The patient is managing opiate-induced constipation with appropriate gxpf-wvh-qnndppz agents and dietary considerations. The patient was counseled on concern for caution with operating a motor vehicle while using opiate medications. PLAN: 1. We discussed treatment options with the patient today. The patient is wondering about an oral naltrexone. I explained to the patient that we do prescribe Suboxone, which does help with pain control. It is a combination of buprenorphine and naloxone. The patient has been trying to wean down off his medications and he is doing a good job since he was at very high doses when he first came to our clinic. I explained to him that we may rotate to him that medication in the future, but I believe at this time we will continue him on the current regimen slowly decreasing him at the next visit possibly to 12 mcg patches. The patient is agreeable with that. 2. Scripts will be sent electronically for his fentanyl patch 25 mcg #10 for today and 4-week release. This is a decrease that he has managed to obtain from 48 hours to 72 hours with no withdrawal symptoms. We will also send his oxycodone 15 mg, #45. [facility] [address] [place] [address] PAIN MANAGEMENT CONSULTATION Name: FELA VICTOR [id number] Admission: 09/19/19 Attend Phys: Fang Mcfadden Discharge: Date of : 66 Report #: [id number] 3. The patient is not needing his gabapentin or oxcarbazepine sent today, though he is telling me he has decreased energy in the morning. 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 The patient verbalizes understanding. He will alter the times of all of that medication starting earlier in the morning and ending earlier in the evening. 4. We will refill his tizanidine 4 mg, #90 with 2 additional refills. He finds this very beneficial in helping with his spasticity. 5. The patient will return in 2 months. The patient is seen in collaboration with Dr. Andres Christina. <ELECTRONICALLY SIGNED> By: Fagn Mcfadden 09/24/19 0737 [id number] Fang Mcfadden /prasanth
== END ==
LOC: PAIN 06:46
PROVIDERS: ATTEND Clinical Nurse Specialist Adult Health
DX: S06.9X0A Unspecified intracranial injury without loss of consciousness, initial encounter (principal); G03.9 Meningitis, unspecified; Z88.0 Allergy status to penicillin; Z88.7 Allergy status to serum and vaccine; X58.XXXA Exposure to other specified factors, initial encounter; Y93.89 Activity, other specified; Y92.89 Other specified places as the place of occurrence of the external cause; Y99.8 Other external cause status

== ENCOUNTER → 2019-11-28 | Outpatient (CLI) | payer OTHER ==
[~2019-11-28] VITALS: Ht 182.9 cm; Wt 96.4 kg
[2019-11-28 08:52] VITALS: BP 111/73
--- NOTE | 2019-11-28 09:09 | NUR ---
Pain Clinic Assessment: 1. History of Osteoarthritis: LEFT PINKY FINGER BACK History of Rheumatoid Arthritis: PSORIATIC ARTHRITIS 2. Height: 6 ft. 0 in. 182.9 cm. Weight: 212.6 lb. oz. 96.435 kg. Patient's BMI: 28.8 3. Vital Signs: BP: 111/73 Pulse: 56 Resp: 14 Temp: 02 Sat: 100 ECG Mon: 4. Pain Intensity: 6 5. Fall Risk: Dizziness: N Needs help standing or walking: N Fallen in the last 3 months: N Fall risk comments: 6. Patient on Blood Thinner: None 7. History of Hypertension: N 8. Opioid Therapy greater than 6 weeks: Y Opiate Contract Signed: 04/26/18 9. Risk Assessment Tool Provided: sheldon 10. Functional Assessment Tool: 11. Recreational Drug Use: Never Drug Type: Tobacco Use: Never Smoker Tobacco Type: Amount or Packs/day: How Many Years: Alcohol Use: No Frequency: Quant:
--- NOTE | 2019-11-28 14:20 | HPC ---
[facility] [address] [place] [address] PAIN MANAGEMENT CONSULTATION Name: FELA VICTOR Room #: REG [facility]#: [id number] Admission: 11/28/19 Attend Phys: Fang Mcfadden Discharge: Date of : 66 Report #: [id number] THIS REPORT FOR: cc: Maine Dubois MD, Aimee B. MD Hocker, Amanda CNS ~ CC: Andres Christina MD DATE OF SERVICE: 11/28/2019 CHIEF COMPLAINT: Chronic pain with radiculopathy and arachnoiditis. HISTORY OF PRESENT ILLNESS: This is a very pleasant 49-year-old gentleman who returns to the pain clinic today to discuss his opioid medications. He continues to have pain in his low back that radiates into his buttocks, most specifically on his right side. He does have sharp, shooting pain at times, which he did have several times throughout our visit today. He is rating his pain score at 6/10, which is elevated from his previous visit. He states any activity and movement has been more difficult this past few months. We have been trying to decrease his opioids very slowly. At our last visit, he agreed to decrease his fentanyl patches from every 48 hours to every 72 hours and continue his oxycodone. He believe the first month he was doing quite well, but this last month he is unable to play golf due to the increased pain and spasms in his lower back. He is not being as active as he would like. He has taken all of his oxycodone for his breakthrough pain and is normally not out of that medication. He is here to discuss possibly going back to every 48 hours to change his patch due to his increased pain. He denies problems with constipation or overmedication as a result of his medications. He does report that he is not sleeping as well due to increased pain. ALLERGIES: BEE STINGS, PENICILLIN AND CAFFEINE. CURRENT LIST OF MEDICATIONS: Oxycodone 15 mg p.r.n., fentanyl patch every 72 hours, tizanidine 4 mg 3 times a day, gabapentin 600 mg 3 times a day and oxcarbazepine 150 mg t.i.d. PQRS: 1. He is positive for psoriatic arthritis and osteoarthritis of multiple joints. 2. Height is 6 feet, weight is 212, BMI is 28. 3. Vital signs 111/73, pulse is 56, respirations 14, oxygen sat is 100, pain score is 6/10. 4. Fall risk. Denies dizziness, does not need help walking or standing, has not fallen in the last 3 months. The patient is not on any blood thinners or medicine for hypertension. 5. His opioid therapy is greater than 6 weeks; therefore, an opioid signed [address] [address] PAIN MANAGEMENT CONSULTATION Name: FELA VICTOR Cody Room #: REG [facility]#: [id number] Admission: 11/28/19 Attend Phys: Fang Mcfadden Discharge: Date of : 66 Report #: [id number] contract is on the chart. Risk assessment is low. Functional assessment is 57/70. 6. Recreational drug use, he denies. He is not a smoker and does not drink alcohol. According to the prescription monitoring system, he is filling appropriately for his medications, filling them in a timely fashion. According to the CDC guidelines, his morphine milliequivalent per day is 90 MME per day. We will collect a random drug screen on this patient today in the form of a buccal swab since he does self-cath himself. He is not taken any oxycodone for a week per his report. PHYSICAL EXAMINATION: GENERAL: This is a well-developed, well-nourished, alert and orientated 49-year-old gentleman who appears his stated age, placing his current pain score at 6/10. HEENT: Normocephalic, atraumatic. Extraocular eye muscles are intact. His eyes are slightly reddened today he is wearing a mask. MUSCULOSKELETAL: He has a spastic gait, but moves independently. He has cramping and spasms in the right lower back, pain that radiates from his lumbosacral region into his lower extremities. His strength is equal and symmetrical in his lower extremities as well. He has ataxia and spasticity in his lower left extremities. His deep tendon reflexes are diminished in his lower extremities. ASSESSMENT: 1. Persistent myelopathic and radiculopathy with spasticity and antalgic gait. 2. Arachnoiditis. 3. Management of high risk medications under terms of written opioid agreement. We reviewed the fact that opiate medications are being used to provide analgesia adequate to support activities of daily living, not attempting to achieve a specific pain score on the 0-10 Visual Analog Scale. The current opiate medications are providing sufficient analgesia to allow the patient to participate in activities of daily living. The patient is not exhibiting any aberrant behavior suggestive of drug diversion. The patient is not having any adverse reactions to medications. The patient is not suffering from daytime somnolence or mental acuity changes. The patient is managing opiate-induced constipation with appropriate itea-tuk-rldygss agents and dietary considerations. The patient was counseled on concern for caution with operating a motor vehicle while using opiate medications. A physical exam was performed and the patient's functional status was evaluated. All patients with back pain were advised against the bed rest greater than 4 days and were advised to return to normal activities. Pain score assessment was noted and the treatment plan was reviewed with the patient. All current [facility] [address] [place] [address] PAIN MANAGEMENT CONSULTATION Name: FELA VICTOR [facility] [id number] Admission: 11/28/19 Attend Phys: Fang Mcfadden Discharge: Date of : 66 Report #: [id number] medications, both prescribed and OTC were reviewed and reconciled on the electronic medical record. Tobacco screening was accomplished and smoking cessation was advised when indicated. BMI was noted and diet/exercise modification was recommended for all patients following outside normal parameters. I reviewed with the patient today their responsibilities to safeguard prescription medications, reviewed their responsibility to utilize medications only as prescribed by the physician. They are to seek and receive pain medications only from 1 physician group ( [facility]). They are to use 1 pharmacy and keep the clinic informed if they change pharmacies. Their responsibilities include making followup visits in a timely fashion and to avoid abrupt discontinuation of medication usage. Their responsibilities further include bringing their medications (bottles from the pharmacy with residual pills) to the visit for possible confirmation of pill counts and the patient understands it is their responsibility to submit to random drug screens to ensure both that the medications prescribed are present, and that no other controlled substances are present. All prescriptions provided today were generated electronically. PLAN: 1. We discussed treatment options with the patient today. The patient reports not doing as well with the decreasing of his medication in the last month. He is requesting to go back to fentanyl 25 mcg every 48 hours. After much discussion, we decided on increase in his OxyIR 15 mg to 2 tablets a day for this next month and continue him at this fentanyl 25 mcg every 72 hours. He has made great progress in decreasing her opioid medications. He was greater than 200 mcg of fentanyl when we first saw him. His desire is to get off his fentanyl patch completely. I explained to him that, that may not be a realistic goal, but we will continue to try to obtain that. We will continue with the 72-hour patches for several more months to see if his body adjusts. 2. Dr. Andres Christina will send his prescriptions electronically for his opioids. The patient to call in 4 weeks' time, if his pain has stabilized, we will continue his fentanyl at 72-hour intervals and decrease his oxycodone 15 mg back to 45 tablets a month. If it has not decreased some, we will continue him at his current dose or possibly increase his patch back 48 hours. 3. I will send his gabapentin 600 mg 3 times a day, #90 with 5 refills and tizanidine 4 mg t.i.d., #90, with 5 additional refills for a total of 6 months for these medications. The patient is not needing his Trileptal filled today. If he finds that he is running low prior to his next appointment, we will call this medication in. 4. We will obtain a buccal swab for random drug screen [place]. [place] [address] PAIN MANAGEMENT CONSULTATION Name: VALENTEFELA Cody Room #: REG [facility]#: [id number] Admission: 11/28/19 Attend Phys: Fang Mcfadden Discharge: Date of : 66 Report #: [id number] seen today in collaboration with Dr. Andres Christina. The patient will return in 2 months. <ELECTRONICALLY SIGNED> By: Fang Mcfadden 11/28/19 1420 [id number] Fang Mcfadden /nt
== END ==
LOC: PAIN 06:49
PROVIDERS: ATTEND Clinical Nurse Specialist Adult Health
DX: M54.16 Radiculopathy, lumbar region (principal); G89.29 Other chronic pain; G03.9 Meningitis, unspecified; R26.89 Other abnormalities of gait and mobility; F11.20 Opioid dependence, uncomplicated; Z88.8 Allergy status to other drugs, medicaments and biological substances; Z79.899 Other long term (current) drug therapy

== ENCOUNTER → 2020-01-30 | Outpatient (CLI) | payer OTHER ==
[~2020-01-30] VITALS: Ht 182.9 cm; Wt 97.2 kg
[2020-01-30 12:39] VITALS: BP 125/90
--- NOTE | 2020-01-30 12:59 | NUR ---
Pain Clinic Assessment: 1. History of Osteoarthritis: LEFT PINKY FINGER BACK History of Rheumatoid Arthritis: PSORIATIC ARTHRITIS 2. Height: 6 ft. in. 182.9 cm. Weight: 214.2 lb. oz. 97.161 kg. Patient's BMI: 29.0 3. Vital Signs: BP: 125/90 Pulse: 72 Resp: 16 Temp: 02 Sat: 99 ECG Mon: 4. Pain Intensity: 5-6 5. Fall Risk: Dizziness: N Needs help standing or walking: N Fallen in the last 3 months: N Fall risk comments: 6. Patient on Blood Thinner: None 7. History of Hypertension: N 8. Opioid Therapy greater than 6 weeks: Y Opiate Contract Signed: 04/26/18 9. Risk Assessment Tool Provided: sheldon 10. Functional Assessment Tool: 11. Recreational Drug Use: Never Drug Type: Tobacco Use: Exposure to Tobacco Smoke Tobacco Type: Chewing Tobacco Amount or Packs/day: How Many Years: Alcohol Use: No Frequency: Quant:
--- NOTE | 2020-01-31 08:34 | HPC ---
[facility] [address] [place] [address] PAIN MANAGEMENT CONSULTATION Name: FELA VICTOR [id number] Admission: 01/30/20 Attend Phys: Fang Mcfadden Discharge: Date of : 66 Report #: [id number] CC: Maine Christina MD DATE OF SERVICE: 01/30/2020 CHIEF COMPLAINT: Chronic pain with radiculopathy and arachnoiditis. HISTORY OF PRESENT ILLNESS: This is a 49-year-old gentleman who is well known to the pain clinic that returns today to discuss his opioid medications. Over the past few months, we have been decreasing his fentanyl patch slowly per the patient's request to try to control his pain at the lowest most effective dose. The patient has been at Duragesic 25 mcg every 72 hours for the past 4 months has been having some difficulty with his pain adjusting to this new level. He has been taking oxycodone on an as needed basis as well. The patient has reported that the last month, he has been utilizing his TENS unit as well and has found this beneficial. Today reporting his pain at 5-6. He characterizes his pain as a tingling, sharp and shooting pain in his lower back to his feet, worse with any activity and movement. He reports if he is sitting still and resting or trying to distract himself that he is able to tolerate his pain. He believes he can continue at the current level for a few more months before making any changes in his regimen. ALLERGIES: PENICILLIN, CAFFEINE AND BEE STINGS. CURRENT LIST OF MEDICATIONS: Oxycodone 15 mg p.r.n., fentanyl 25 mcg every 72 hours, tizanidine 4 mg t.i.d., gabapentin 600 mg t.i.d. and oxcarbazepine 150 mg t.i.d. PQRS: 1. He has osteoarthritic changes in multiple joints and suffers from psoriatic arthritis as well. 2. Height is 6 feet, weight is 214, BMI is 29. 3. Vital signs; blood pressure 125/90, pulse is 72, respirations 16, oxygen sat is 99. 4. Pain score 5-6. 5. Denies dizziness, does not need help walking or standing, has not fallen in the last 3 months. 6. The patient is not on any blood thinners or medicine for hypertension. 7. His opioid therapy is greater than 6 weeks; therefore, an opioid signed contract is on the chart. Risk assessment is low. Functional assessment is 57/70. 8. Recreational drug use, he denies. He uses chewing tobacco and does not drink alcohol. According to the prescription monitoring system, the patient is filling his medications appropriately despite our tapering his medication, he still has a relatively high level of 105 morphine mEq a day. PHYSICAL EXAMINATION: GENERAL: This is a well-developed, well-nourished, alert and orientated 49-year-old gentleman who appears his stated age, placing his current pain score today at 5-6. HEENT: Normocephalic, atraumatic. Extraocular eye muscles are intact. He is wearing a mask. Sclerae are slightly reddened. MUSCULOSKELETAL: He has a spastic gait, but moves independently. His lower extremity strength are atrial and symmetrical. Deep tendon reflexes are diminished in his lower extremities. Pain in his lumbosacral region that does radiate into his legs. We reviewed the fact that opiate medications are being used to provide analgesia adequate to support activities of daily living, not attempting to achieve a specific pain score on the 0-10 Visual Analog Scale. The current opiate medications are providing sufficient analgesia to allow the patient to participate in activities of daily living. The patient is not exhibiting any aberrant behavior suggestive of drug diversion. The patient is not having any adverse reactions to medications. The patient is not suffering from daytime somnolence or mental acuity changes. The patient is managing opiate-induced constipation with appropriate pdqk-wyq-uxziqip agents and dietary considerations. The patient was counseled on concern for caution with operating a motor vehicle while using opiate medications. A physical exam was performed and the patient's functional status was evaluated. All patients with back pain were advised against the bed rest greater than 4 days and were advised to return to normal activities. Pain score assessment was noted and the treatment plan was reviewed with the patient. All current medications, both prescribed and OTC were reviewed and reconciled on the electronic medical record. Tobacco screening was accomplished and smoking cessation was advised when indicated. BMI was noted and diet/exercise modification was recommended for all patients following outside normal parameters. I reviewed with the patient today their responsibilities to safeguard prescription medications, reviewed their responsibility to utilize medications only as prescribed by the physician. They are to seek and receive pain medications only from 1 physician group ( [facility]). They are to use 1 pharmacy and keep the clinic informed if they change pharmacies. Their responsibilities include making followup visits in a timely fashion and to avoid abrupt discontinuation of medication usage. Their responsibilities further include bringing their medications (bottles from the pharmacy with residual pills) to the visit for possible confirmation of pill counts and the patient understands it is their responsibility to submit to random drug screens to ensure both that the medications prescribed are present, and that no other controlled substances are present. All prescriptions provided today were generated electronically. ASSESSMENT: 1. 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 2. Arachnoiditis. 3. Management of high risk medications under terms of written opioid agreement. PLAN: 1. We discussed treatment options with the patient today. The patient seems to have plateaued on his current medication regimen at 25 mcg fentanyl patch and OxyIR 15 mg 1-2 tablets a day. We will continue him at this current level and have Dr. Andres Christina send one month of medications to his pharmacy. We did discuss possible increase in his gabapentin, he currently takes 600 mg 3 times a day and has been stable at this dose for several years, but previously, he was at a higher level. He feels that he has been having increased numbness and tingling in his lower extremities feeling "prickly sensation." We may consider increasing that at his next visit. 2. We did discuss his opioid drug screen that we obtained at his last visit. The patient does perform self-catheterization several times a day, so we did obtain a buccal swab, it was negative for his fentanyl, though positive for his nicotine and gabapentin. We discussed this today. He was wearing his fentanyl patch at the time of the visit. I believe that he was taking his medicines appropriately, though because it was oral swab and may not be as beneficial as a test as a urine, we will retest him in 1 month. The patient will come in for an early breastfeeding care specialist appointment where he does not require self-catheterization. 3. We did discuss tobacco sensation. He does use chewing tobacco. We did discuss how nicotine and opioids use are not beneficial in combination together and encourage him to decrease his oral chewing of tobacco. The patient states he will try to refrain from this since his pain is better controlled by stopping the usage of tobacco. 4. The patient is seen today in collaboration with Dr. Andres Christina. The patient will return in 1 month for refills of medication and a urine drug screen. <ELECTRONICALLY SIGNED> By: Fang Mcfadden 01/31/20 0834 [id number] Fang Mcfadden /prasanth
== END ==
LOC: PAIN 06:54
PROVIDERS: ATTEND Clinical Nurse Specialist Adult Health
DX: M54.16 Radiculopathy, lumbar region (principal); R26.9 Unspecified abnormalities of gait and mobility; Z88.0 Allergy status to penicillin; Z88.5 Allergy status to narcotic agent; Z79.891 Long term (current) use of opiate analgesic; Z79.899 Other long term (current) drug therapy

== ENCOUNTER → 2020-03-02 | Outpatient (CLI) | payer OTHER ==
[~2020-03-02] VITALS: Ht 182.9 cm; Wt 97.1 kg
[2020-03-02 08:59] VITALS: BP 144/94
--- NOTE | 2020-03-02 09:00 | NUR ---
Pain Clinic Assessment: 1. History of Osteoarthritis: LEFT PINKY FINGER BACK History of Rheumatoid Arthritis: PSORIATIC ARTHRITIS 2. Height: 6 ft. 0 in. 182.9 cm. Weight: 214.0 lb. oz. 97.070 kg. Patient's BMI: 29.0 3. Vital Signs: BP: 144/94 Pulse: 77 Resp: 14 Temp: 02 Sat: 95 ECG Mon: 4. Pain Intensity: 4-5 5. Fall Risk: Dizziness: N Needs help standing or walking: N Fallen in the last 3 months: N Fall risk comments: 6. Patient on Blood Thinner: None 7. History of Hypertension: N 8. Opioid Therapy greater than 6 weeks: Y Opiate Contract Signed: 04/26/18 9. Risk Assessment Tool Provided: sheldon 10. Functional Assessment Tool: 11. Recreational Drug Use: Never Drug Type: Tobacco Use: Exposure to Tobacco Smoke Tobacco Type: Amount or Packs/day: How Many Years: Alcohol Use: No Frequency: Quant:
--- NOTE | 2020-03-03 09:12 | HPC ---
[facility] [place] [address] [place] [address] PAIN MANAGEMENT CONSULTATION Name: FELA VICTOR Room #: REG [facility].#: [id number] Admission: 03/02/20 Attend Phys: Fang Mcfadden Discharge: Date of : 66 Report #: [id number] THIS REPORT FOR: cc: Maine Dubois MD, Aimee B. MD Hocker, Amanda CNS ~ CC: Andres Mcfadden DATE OF SERVICE: 03/02/2020 CHIEF COMPLAINT: Chronic pain with radiculopathy and arachnoiditis. HISTORY OF PRESENT ILLNESS: This is a very pleasant 49-year-old gentleman who returns to the pain clinic today to provide us a urine specimen as well as a refill of his medications. Today, he rates his pain currently at 2/3, though after he exercises and stretches later in the day, it may be as high as 6. He does find the fentanyl and oxycodone very beneficial. We did discuss moving his patch from his forearm up to his upper arm and he has done that the last month to see if he has better absorption of his medications. The patient reports his pain is mostly in his low back down his bilateral legs to his toes. It is a dull aching and occasional sharp spasming pain, again worse with activity or prolonged inactivity. He denies problems with constipation or daytime somnolence. ALLERGIES: BEE STINGS, PENICILLIN and CAFFEINE. CURRENT LIST OF MEDICATIONS: Oxycodone 15 mg p.r.n., fentanyl patch 25 mcg every 72 hours, tizanidine, gabapentin, oxcarbazepine. PQRS: 1. He has osteoarthritic changes in multiple joints and suffers from psoriatic arthritis. 2. Height is 6 feet, weight is 214, BMI is 29. VITAL SIGNS: Blood pressure 144/94, pulse is 77, respirations 14, oxygen sat is 95, pain score is 4-5. Fall risk. Denies dizziness, does not need help walking or standing, has not fallen in the last 3 months. The patient is not on any blood thinners or medicine for hypertension. His opioid therapy is greater than 6 weeks; therefore, an opioid signed contract is on the chart. Risk assessment is low. Functional assessment is 57/70. 3. Recreational drug use, he denies. He does chew tobacco occasionally and is not on any alcohol products. According to the prescription monitoring system, the patient is filling appropriately for his medications. His morphine mEq is 103. We do follow him very closely. He is providing us with a drug screen today of urine. The previous one was an oral swab that we felt was [address] [address] PAIN MANAGEMENT CONSULTATION Name: FELA VICTOR Cody Room #: REG [facility]#: [id number] Admission: 03/02/20 Attend Phys: Fang Mcfadden Discharge: Date of : 66 Report #: [id number] not accurate in the results. PHYSICAL EXAMINATION: GENERAL: This is alert and orientated, well-developed, well-nourished 49-year-old gentleman who places his pain score from 2-6 today depending on activity. HEENT: Normocephalic, atraumatic. Extraocular eye muscles are intact. He is wearing a mask. MUSCULOSKELETAL: His lower extremity strength is symmetrical at 5/5. He has a spastic gait, but does walk independently. Deep tendon reflexes are diminished in his lower extremities. He has pain in the lumbosacral region that radiates into his legs bilaterally. He does have spasticity in his lower extremities as well. ASSESSMENT: 1. Persistent myelopathic and radiculopathy with spasticity and antalgic gait. 2. Arachnoiditis. 3. Management of high risk medications under terms of written opioid agreement. We reviewed the fact that opiate medications are being used to provide analgesia adequate to support activities of daily living, not attempting to achieve a specific pain score on the 0-10 Visual Analog Scale. The current opiate medications are providing sufficient analgesia to allow the patient to participate in activities of daily living. The patient is not exhibiting any aberrant behavior suggestive of drug diversion. The patient is not having any adverse reactions to medications. The patient is not suffering from daytime somnolence or mental acuity changes. The patient is managing opiate-induced constipation with appropriate dady-zrr-dgxtvik agents and dietary considerations. The patient was counseled on concern for caution with operating a motor vehicle while using opiate medications. A physical exam was performed and the patient's functional status was evaluated. All patients with back pain were advised against the bed rest greater than 4 days and were advised to return to normal activities. Pain score assessment was noted and the treatment plan was reviewed with the patient. All current medications, both prescribed and OTC were reviewed and reconciled on the electronic medical record. Tobacco screening was accomplished and smoking cessation was advised when indicated. BMI was noted and diet/exercise modification was recommended for all patients following outside normal parameters. I reviewed with the patient today their responsibilities to safeguard prescription medications, reviewed their responsibility to utilize medications only as prescribed by the physician. They are to seek and receive pain medications only from 1 physician group ([facility]). They are to use 1 pharmacy and keep the clinic informed if they change pharmacies. Their [facility] [place] [address] [place] [address] PAIN MANAGEMENT CONSULTATION Name: FELA VICTOR Room #: REG [facility]#: [id number] Admission: 03/02/20 Attend Phys: Fang Mcfadden Discharge: Date of : 66 Report #: [id number] responsibilities include making followup visits in a timely fashion and to avoid abrupt discontinuation of medication usage. Their responsibilities further include bringing their medications (bottles from the pharmacy with residual pills) to the visit for possible confirmation of pill counts and the patient understands it is their responsibility to submit to random drug screens to ensure both that the medications prescribed are present, and that no other controlled substances are present. All prescriptions provided today were generated electronically. PLAN: 1. We discussed treatment options with the patient today. We have collected a random drug screen on this patient today of urine due to the last buccal swab showing some variations in some of his medications, though his patch was on his arm at the time of visit. Today, he states he does have his fentanyl patch on and took his last dose of breakthrough pain medicine on Monday. 2. We will continue him on his fentanyl 25 mcg patch every 72 hours and his oxycodone IR as needed, quantity 60 will be sent. We will attempt to decrease his oxycodone back to 45 tablets at his next appointment in April. 3. Scripts sent electronically by Dr. Christina and I have sent his oxcarbazepine 150 mg t.i.d. as well. The patient is seen today in collaboration with Dr. Christina. <ELECTRONICALLY SIGNED> By: Fang Mcfadden 03/03/20 0912 [id number] Fang amaro
== END ==
LOC: PAIN 06:40
PROVIDERS: ATTEND Clinical Nurse Specialist Adult Health
DX: G03.9 Meningitis, unspecified (principal); F11.20 Opioid dependence, uncomplicated; M54.10 Radiculopathy, site unspecified; Z88.8 Allergy status to other drugs, medicaments and biological substances; Z79.899 Other long term (current) drug therapy

== ENCOUNTER → 2020-04-30 | Outpatient (CLI) | payer OTHER ==
[~2020-04-30] VITALS: Ht 182.9 cm; Wt 100.7 kg
[~2020-04-30] MED LIST changes: +NARCAN4 MG NARES; +TIZANIDINE HCL4 M2 PO
[2020-04-30 10:50] VITALS: BP 134/99
--- NOTE | 2020-04-30 11:05 | NUR ---
Pain Clinic Assessment: 1. History of Osteoarthritis: LEFT PINKY FINGER BACK History of Rheumatoid Arthritis: PSORIATIC ARTHRITIS 2. Height: 6 ft. 0 in. 182.9 cm. Weight: 222.0 lb. oz. 100.699 kg. Patient's BMI: 30.1 3. Vital Signs: BP: 134/99 Pulse: 70 Resp: 14 Temp: 02 Sat: 97 ECG Mon: 4. Pain Intensity: 4-5 5. Fall Risk: Dizziness: N Needs help standing or walking: N Fallen in the last 3 months: N Fall risk comments: 6. Patient on Blood Thinner: None 7. History of Hypertension: N 8. Opioid Therapy greater than 6 weeks: Y Opiate Contract Signed: 04/26/18 9. Risk Assessment Tool Provided: sheldon 10. Functional Assessment Tool: 11. Recreational Drug Use: Never Drug Type: Tobacco Use: Never Smoker Tobacco Type: Amount or Packs/day: How Many Years: Alcohol Use: Yes Frequency: Special Occasions Quant:
--- NOTE | 2020-05-04 12:42 | HPC ---
[facility] [address] [place] [address] PAIN MANAGEMENT CONSULTATION Name: FELA VICTOR [facility]: [facility] [id number] Admission: 04/30/20 Attend Phys: Fang Mcfadden Discharge: Date of : 66 Report #: [id number] THIS REPORT FOR: cc: Maine Dubois MD, Aimee B. MD Hocker,Fang FARAH ~ DATE OF SERVICE: 04/30/2020 CHIEF COMPLAINT: Chronic pain with radiculopathy and arachnoiditis. HISTORY OF PRESENT ILLNESS: This is a 49-year-old gentleman who returns to the pain clinic today for his ongoing treatment of chronic low back pain and arachnoiditis. Today, he is reporting a pain score 4-5. He states that it is a dull aching sensation that is occasionally sharp with significant activity or sitting still too long. He reports that the medication as well as rest has been beneficial. The patient states he is slightly depressed today. He is tired of being home and is thinking about going on a trip to help raise his spirits. Overall, he believes that pain medication is very beneficial in allowing him relief and feels like he is stabilizing on his current dose. The patient is requesting a refill of his Narcan prescription. He reports he had received his last Narcan medication when he lived in [place]. He was on significantly higher doses of medications at that time. He is wondering about our thoughts. He feels that it is safe to have it at home in case of an emergency, though he believes he will not overdose on his medications. ALLERGIES: PENICILLIN, CAFFEINE and BEE STINGS. CURRENT LIST OF MEDICATIONS: Trileptal 150 mg t.i.d., oxycodone 15 mg p.r.n., fentanyl patch 25 mcg every 72 hours, tizanidine and gabapentin. PQRS: 1. He has osteoarthritis in his back and fingers. He is also being treated for psoriatic arthritis. 2. Height is 6 feet, weight is 222, BMI is 30. 3. Vital signs: Blood pressure 134/99, pulse is 70, respirations 14, oxygen sat is 97%. Pain score is 4-5. 4. Denies dizziness, does not need assistance with walking, has not fallen in the last 3 months. 5. The patient is not on any blood thinners or medicine for hypertension. 6. Opioid therapy is greater than 6 weeks; therefore, an opioid signed contract is on the chart. Risk assessment is low. Functional assessment is 57/70. 7. Recreational drug use, he denies. He is not a smoker and does chew tobacco and occasionally drinks alcohol. According to the prescription monitoring system, the patient is filling [address] [address] PAIN MANAGEMENT CONSULTATION Name: FELA VICTOR Room #: REG [facility]#: [id number] Admission: 04/30/20 Attend Phys: Fang Mcfadden Discharge: Date of : 66 Report #: [id number] appropriately. He is due to fill his medications next week, filling them in a timely fashion. Morphine mEq is 95. There is a drug screen on the chart that is appropriate for his medications. PHYSICAL EXAMINATION: GENERAL: This is alert and orientated 49-year-old gentleman who appears his stated age, placing his current pain score at 4-5 today. He is a good historian. HEENT: Normocephalic, atraumatic. Extraocular eye muscles are intact. He is wearing a mask. MUSCULOSKELETAL: He has a spastic gait. He walks independently without assistive devices. Deep tendon reflexes are diminished in his lower extremities. He has tenderness and pain in his lumbosacral region that radiates into his legs bilaterally. His strength is symmetrical in his lower extremities at 5/5. He has an AFO on his left foot. ASSESSMENT: 1. Persistent myelopathic and radiculopathy with spasticity and antalgic gait. 2. Arachnoiditis. 3. Management of high risk medications under terms of written opioid agreement. PLAN: 1. We discussed treatment options with the patient today. We will continue him on his fentanyl patch 25 mcg every 72 hours, sending electronically #10 patches to be released today and again in 4 weeks as well is his oxycodone #60. We will attempt to decrease that to 45 tablets at his next visit. 2. We will send electronically a Narcan prescription. I do not believe the patient will overdose, but it will be a case of an emergency. He reports he tells his father and family how to use it in case something did happen to him. 3. The patient continues on his oxcarbazepine, tizanidine and gabapentin. Scripts will be sent electronically for this as well. 4. I encouraged the patient to go out of town and visit family to help hopefully with some of his depression that he is feeling from being isolated at home due to the COVID outbreak, believe as long as he is safe and wears his mask and social distancing, he should be fine. 5. The patient is seen today in collaboration with Dr. Andres Christina. He will follow up in 2 months. <ELECTRONICALLY SIGNED> By: Fang Mcfadden 05/04/20 1242 [id number] Fang Mcfadden /prasanth
== END ==
LOC: PAIN 06:48
PROVIDERS: ATTEND Clinical Nurse Specialist Adult Health
DX: R26.9 Unspecified abnormalities of gait and mobility (principal); G03.9 Meningitis, unspecified; Z88.0 Allergy status to penicillin; Z88.5 Allergy status to narcotic agent; Z79.891 Long term (current) use of opiate analgesic

== ENCOUNTER → 2020-06-25 | Outpatient (CLI) | payer OTHER ==
[~2020-06-25] VITALS: Ht 182.9 cm; Wt 104.5 kg
[2020-06-25 10:01] VITALS: BP 100/55
--- NOTE | 2020-06-25 10:05 | NUR ---
Pain Clinic Assessment: 1. History of Osteoarthritis: LEFT PINKY FINGER BACK History of Rheumatoid Arthritis: PSORIATIC ARTHRITIS 2. Height: 6 ft. 0 in. 182.9 cm. Weight: 230.4 lb. oz. 104.509 kg. Patient's BMI: 31.2 3. Vital Signs: BP: 100/55 Pulse: 83 Resp: 18 Temp: 02 Sat: 98 ECG Mon: 4. Pain Intensity: 3 5. Fall Risk: Dizziness: Y Needs help standing or walking: N Fallen in the last 3 months: N Fall risk comments: 6. Patient on Blood Thinner: None 7. History of Hypertension: N 8. Opioid Therapy greater than 6 weeks: Y Opiate Contract Signed: 04/26/18 9. Risk Assessment Tool Provided: sheldon 10. Functional Assessment Tool: 11. Recreational Drug Use: Never Drug Type: Tobacco Use: Never Smoker Tobacco Type: Amount or Packs/day: How Many Years: Alcohol Use: No Frequency: Quant:
== END ==
LOC: PAIN 06:39
PROVIDERS: ATTEND Clinical Nurse Specialist Adult Health
DX: M54.16 Radiculopathy, lumbar region (principal); G89.29 Other chronic pain; G03.9 Meningitis, unspecified; Z88.0 Allergy status to penicillin; Z79.899 Other long term (current) drug therapy; Z79.891 Long term (current) use of opiate analgesic

== ENCOUNTER → 2020-08-20 | Outpatient (CLI) | payer OTHER ==
[~2020-08-20] VITALS: Ht 182.9 cm; Wt 105.3 kg
[2020-08-20 08:49] VITALS: BP 127/89
--- NOTE | 2020-08-20 08:57 | NUR ---
Pain Clinic Assessment: 1. History of Osteoarthritis: LEFT PINKY FINGER BACK History of Rheumatoid Arthritis: PSORIATIC ARTHRITIS 2. Height: 6 ft. 0 in. 182.9 cm. Weight: 232.2 lb. oz. 105.325 kg. Patient's BMI: 31.5 3. Vital Signs: BP: 127/89 Pulse: 78 Resp: 14 Temp: 02 Sat: 98 ECG Mon: 4. Pain Intensity: 7 5. Fall Risk: Dizziness: N Needs help standing or walking: N Fallen in the last 3 months: N Fall risk comments: 6. Patient on Blood Thinner: None 7. History of Hypertension: N 8. Opioid Therapy greater than 6 weeks: Y Opiate Contract Signed: 04/26/18 9. Risk Assessment Tool Provided: sheldon 10. Functional Assessment Tool: 11. Recreational Drug Use: Never Drug Type: Tobacco Use: Never Smoker Tobacco Type: Amount or Packs/day: How Many Years: Alcohol Use: No Frequency: Quant:
== END ==
LOC: PAIN 06:50
PROVIDERS: ATTEND Clinical Nurse Specialist Adult Health
DX: G03.9 Meningitis, unspecified (principal); G89.29 Other chronic pain; F32.9 Major depressive disorder, single episode, unspecified; F11.20 Opioid dependence, uncomplicated; M10.9 Gout, unspecified

== ENCOUNTER → 2020-09-21 | Outpatient (CLI) | payer OTHER ==
[~2020-09-21] VITALS: Ht 182.9 cm; Wt 105.7 kg
[2020-09-21 08:39] VITALS: BP 147/83
--- NOTE | 2020-09-21 08:42 | NUR ---
Pain Clinic Assessment: 1. History of Osteoarthritis: LEFT PINKY FINGER BACK History of Rheumatoid Arthritis: PSORIATIC ARTHRITIS 2. Height: 6 ft. 0 in. 182.9 cm. Weight: 233.0 lb. oz. 105.688 kg. Patient's BMI: 31.6 3. Vital Signs: BP: 147/83 Pulse: 70 Resp: 16 Temp: 02 Sat: 99 ECG Mon: 4. Pain Intensity: 4 5. Fall Risk: Dizziness: N Needs help standing or walking: N Fallen in the last 3 months: N Fall risk comments: 6. Patient on Blood Thinner: None 7. History of Hypertension: N 8. Opioid Therapy greater than 6 weeks: Y Opiate Contract Signed: 04/26/18 9. Risk Assessment Tool Provided: sheldon 10. Functional Assessment Tool: 11. Recreational Drug Use: Never Drug Type: Tobacco Use: Never Smoker Tobacco Type: Amount or Packs/day: How Many Years: Alcohol Use: No Frequency: Quant:
== END ==
LOC: PAIN 07:08
PROVIDERS: ATTEND Clinical Nurse Specialist Adult Health
DX: G03.9 Meningitis, unspecified (principal); R27.0 Ataxia, unspecified; M25.562 Pain in left knee; F32.9 Major depressive disorder, single episode, unspecified; Z79.891 Long term (current) use of opiate analgesic; Z79.899 Other long term (current) drug therapy

== ENCOUNTER → 2020-11-09 | Outpatient (CLI) | payer OTHER ==
[~2020-11-09] VITALS: Ht 182.9 cm; Wt 104.5 kg
[2020-11-09 09:12] VITALS: BP 127/78
--- NOTE | 2020-11-09 09:24 | NUR ---
Pain Clinic Assessment: 1. History of Osteoarthritis: LEFT PINKY FINGER BACK History of Rheumatoid Arthritis: PSORIATIC ARTHRITIS 2. Height: 6 ft. 0 in. 182.9 cm. Weight: 230.4 lb. oz. 104.509 kg. Patient's BMI: 31.2 3. Vital Signs: BP: 127/78 Pulse: 54 Resp: 14 Temp: 02 Sat: 100 ECG Mon: 4. Pain Intensity: 4-5 5. Fall Risk: Dizziness: N Needs help standing or walking: N Fallen in the last 3 months: N Fall risk comments: 6. Patient on Blood Thinner: None 7. History of Hypertension: N 8. Opioid Therapy greater than 6 weeks: Y Opiate Contract Signed: 04/26/18 9. Risk Assessment Tool Provided: sheldon 10. Functional Assessment Tool: 11. Recreational Drug Use: Never Drug Type: Tobacco Use: Never Smoker Tobacco Type: Amount or Packs/day: How Many Years: Alcohol Use: No Frequency: Quant:
== END ==
LOC: PAIN 06:57
PROVIDERS: ATTEND Clinical Nurse Specialist Adult Health
DX: G03.9 Meningitis, unspecified (principal); M54.16 Radiculopathy, lumbar region; R27.0 Ataxia, unspecified; F32.9 Major depressive disorder, single episode, unspecified; Z79.899 Other long term (current) drug therapy; Z79.891 Long term (current) use of opiate analgesic

== ENCOUNTER → 2021-01-11 | Outpatient (CLI) | payer OTHER ==
[~2021-01-11] VITALS: Ht 182.9 cm; Wt 102.8 kg
[~2021-01-11] MED LIST changes: +FENTANYL1 EAC7 TRANSDERM
[2021-01-11 09:00] VITALS: BP 129/95
--- NOTE | 2021-01-11 09:06 | NUR ---
Pain Clinic Assessment: 1. History of Osteoarthritis: LEFT PINKY FINGER BACK History of Rheumatoid Arthritis: PSORIATIC ARTHRITIS 2. Height: 6 ft. 0 in. 182.9 cm. Weight: 226.6 lb. oz. 102.785 kg. Patient's BMI: 30.7 3. Vital Signs: BP: 129/95 Pulse: 80 Resp: 14 Temp: 02 Sat: 96 ECG Mon: 4. Pain Intensity: 4 5. Fall Risk: Dizziness: N Needs help standing or walking: N Fallen in the last 3 months: N Fall risk comments: 6. Patient on Blood Thinner: None 7. History of Hypertension: N 8. Opioid Therapy greater than 6 weeks: Y Opiate Contract Signed: 04/26/18 9. Risk Assessment Tool Provided: sheldon 10. Functional Assessment Tool: 11. Recreational Drug Use: Never Drug Type: Tobacco Use: Never Smoker Tobacco Type: Amount or Packs/day: How Many Years: Alcohol Use: No Frequency: Quant:
== END ==
LOC: PAIN 07:01
PROVIDERS: ATTEND Anesthesiology Pain Medicine
DX: G89.29 Other chronic pain (principal); M54.50 Low back pain, unspecified; G95.89 Other specified diseases of spinal cord; Z79.899 Other long term (current) drug therapy; Z88.0 Allergy status to penicillin; Z88.8 Allergy status to other drugs, medicaments and biological substances

== ENCOUNTER → 2021-03-11 | Outpatient (CLI) | payer OTHER ==
[~2021-03-11] VITALS: Ht 182.9 cm; Wt 102.5 kg
[2021-03-11 09:55] VITALS: BP 132/92
--- NOTE | 2021-03-11 10:10 | NUR ---
Pain Clinic Assessment: 1. History of Osteoarthritis: LEFT PINKY FINGER BACK History of Rheumatoid Arthritis: PSORIATIC ARTHRITIS 2. Height: 6 ft. 0 in. 182.9 cm. Weight: 226.0 lb. oz. 102.513 kg. Patient's BMI: 30.6 3. Vital Signs: BP: 132/92 Pulse: 85 Resp: 14 Temp: 02 Sat: 97 ECG Mon: 4. Pain Intensity: 4 5. Fall Risk: Dizziness: N Needs help standing or walking: N Fallen in the last 3 months: N Fall risk comments: 6. Patient on Blood Thinner: None 7. History of Hypertension: N 8. Opioid Therapy greater than 6 weeks: Y Opiate Contract Signed: 04/26/18 9. Risk Assessment Tool Provided: sheldon 10. Functional Assessment Tool: 11. Recreational Drug Use: Never Drug Type: Tobacco Use: Never Smoker Tobacco Type: Amount or Packs/day: How Many Years: Alcohol Use: No Frequency: Quant:
== END ==
LOC: PAIN 06:53
PROVIDERS: ATTEND Clinical Nurse Specialist Adult Health
DX: G89.29 Other chronic pain (principal); M54.50 Low back pain, unspecified; G95.89 Other specified diseases of spinal cord; M96.1 Postlaminectomy syndrome, not elsewhere classified; Z88.0 Allergy status to penicillin; Z88.8 Allergy status to other drugs, medicaments and biological substances

== ENCOUNTER → 2021-05-10 | Outpatient (CLI) | payer OTHER ==
[~2021-05-10] VITALS: Ht 182.9 cm; Wt 103.9 kg
[2021-05-10 12:44] VITALS: BP 151/117
--- NOTE | 2021-05-10 12:49 | NUR ---
Pain Clinic Assessment: 1. History of Osteoarthritis: LEFT PINKY FINGER BACK History of Rheumatoid Arthritis: PSORIATIC ARTHRITIS 2. Height: 6 ft. 0 in. 182.9 cm. Weight: 229.0 lb. oz. 103.874 kg. Patient's BMI: 31.1 3. Vital Signs: BP: 151/117 Pulse: 82 Resp: 14 Temp: 02 Sat: 97 ECG Mon: 4. Pain Intensity: 4 5. Fall Risk: Dizziness: N Needs help standing or walking: N Fallen in the last 3 months: N Fall risk comments: 6. Patient on Blood Thinner: None 7. History of Hypertension: N 8. Opioid Therapy greater than 6 weeks: Y Opiate Contract Signed: 04/26/18 9. Risk Assessment Tool Provided: sheldon 10. Functional Assessment Tool: 11. Recreational Drug Use: Never Drug Type: Tobacco Use: Never Smoker Tobacco Type: Amount or Packs/day: How Many Years: Alcohol Use: No Frequency: Quant:
== END ==
LOC: PAIN 09:46
PROVIDERS: ATTEND Clinical Nurse Specialist Adult Health
DX: G89.29 Other chronic pain (principal); M54.50 Low back pain, unspecified; M54.10 Radiculopathy, site unspecified; R25.2 Cramp and spasm; Z88.0 Allergy status to penicillin; Z79.899 Other long term (current) drug therapy; Z88.8 Allergy status to other drugs, medicaments and biological substances